=== PATIENT | male | born 1980 | race Hispanic/Latino ===

== ENCOUNTER 2021-06-23 23:42 | Emergency (ER) | payer BC, OTHER ==
[2021-06-24] MEDS ORDERED: CEFAZOLIN SODIUM 1 GM/VIAL ONE (04:26)
[2021-06-24] MEDS ORDERED: HYDROCODONE/APAP 5/325 MG TAB ONE (04:26)
[2021-06-24] MEDS ORDERED: TETANUS & DIPHTHERIA TOX,ADULT 0.5 ML VIAL ONE (04:26)
--- NOTE | 2021-06-24 04:53 | ER ---
Nurse's Notes [facility] Name: Serjio Srivastava Age: 40 yrs Sex: Male : 1980 Arrival Date: 06/23/2021 Time: 23:47 Bed 5 Private MD: Diagnosis: Contusion, Right Hand;Abrasion, Right Hand Presentation: 06/24 00:18 Chief complaint: Patient states: Was hitting punching bag at arcade and missed the bag, lp1 hit a metal machine nearby; Pain and swelling to right hand; + ETOH. Coronavirus screen: Client denies travel out of the [place] in the last 14 days. At this time, the client does not indicate any symptoms associated with coronavirus-19. Ebola Screen: No symptoms or risks identified at this time. Risk Assessment: Do you want to hurt yourself or someone else? Patient reports no desire to harm self or others. Onset of symptoms was June 23, 2021 at 23:00. 00:18 Method Of Arrival: Ambulatory lp1 00:18 Acuity: MARIBEL 4 lp1 00:20 Initial Sepsis Screen: Does the patient meet any 2 criteria? No. Patient's initial lp1 sepsis screen is negative. Does the patient have a suspected source of infection? No. Patient's initial sepsis screen is negative. Historical: - Allergies: 00:20 No Known Allergies; lp1 - Home Meds: 00:20 None [Active]; lp1 - PMHx: 00:20 None; lp1 - Immunization history:: Adult Immunizations up to date. - Social history:: Smoking status: Patient reports the use of cigarette tobacco products, smokes one-half pack cigarettes per day. Screenin:22 Abuse screen: Denies threats or abuse. Denies injuries from another. Nutritional aj1 screening: No deficits noted. Tuberculosis screening: No symptoms or risk factors identified. Assessment: 00:24 General: Appears in no apparent distress. Behavior is appropriate for age. Pain: lp1 Complains of pain in right hand Pain currently is 2 out of 10 on a pain scale. Neuro: Level of Consciousness is awake, alert, obeys commands. Cardiovascular: Patient's skin is warm and dry. Respiratory: Respiratory effort is even, unlabored. GI: No signs and/or symptoms were reported involving the gastrointestinal system. : No signs and/or symptoms were reported regarding the genitourinary system. EENT: No signs and/or symptoms were reported regarding the EENT system. Derm: Skin is pink, warm \T\ dry. Musculoskeletal: Swelling present in right index finger, right middle finger and dorsum of right hand. 02:22 General: Appears in no apparent distress. comfortable, Behavior is calm, cooperative, aj1 appropriate for age. Pain: Complains of pain in right hand Pain does not radiate. Pain currently is 2 out of 10 on a pain scale. Quality of pain is described as aching. Neuro: Level of Consciousness is awake, alert, obeys commands, Oriented to place, time, situation. Cardiovascular: Patient's skin is warm and dry. Respiratory: Airway is patent Respiratory effort is even, unlabored, Respiratory pattern is regular, symmetrical. GI: No signs and/or symptoms were reported involving the gastrointestinal system. : EENT: No signs and/or symptoms were reported regarding the EENT system. Derm: No signs and/or symptoms reported regarding the dermatologic system. Skin is pink, warm \T\ dry. normal. Musculoskeletal: Range of motion: limited in MCP of right index finger, DIP of right middle finger, MCP of right middle finger, MCP of right ring finger and MCP of right little finger Swelling present in right hand. 03:30 Reassessment: Patient appears in no apparent distress at this time. No changes from aj1 previously documented assessment. Patient and/or family updated on plan of care and expected duration. Pain level reassessed. Patient is alert, oriented x 3, equal unlabored respirations, skin warm/dry/pink. 04:12 Reassessment: Patient appears in no apparent distress at this time. No changes from aj1 previously documented assessment. Patient and/or family updated on plan of care and expected duration. Pain level reassessed. Patient is alert, oriented x 3, equal unlabored respirations, skin warm/dry/pink. Patient refuses tetanus and Ancef injections because he does not want to take a shot. 05:06 Reassessment: Patient is alert, oriented x 3, equal unlabored respirations, skin bb warm/dry/pink. bandage to right hand in place, pt verbalized understanding of and agrees to plan of care discharge instructions given pt ambulated with steady gait to exit accompanied by spouse. Vital Signs: 00:20 BP 124 / 81; Pulse 92; Resp 18; Temp 98.2(TE); Pulse Ox 99% on R/A; Weight 113.4 kg lp1 (R); Height 5 ft. 7 in. (170.18 cm); Pain 2/10; 00:20 Body Mass Index 39.16 (113.40 kg, 170.18 cm) lp1 ED Course: 06/23 23:47 Patient arrived in ED. do 06/24 00:20 Triage completed. lp1 00:20 Arm band placed on left wrist. lp1 00:58 Hand Right 3 View XRAY In Process Unspecified. EDMS 02:19 Ernesto Jarvis MD is Attending Physician. [facility] 02:19 Melissa Garibay, RN is Primary Nurse. aj1 02:22 Patient has correct armband on for positive identification. Bed in low position. Call aj1 light in reach. 02:22 No provider procedures requiring assistance completed. aj1 05:08 Patient did not have IV access during this emergency room visit. bb Administered Medications: 04:12 Drug: [place] (HYDROcodone-acetaminophen) 5 mg-325 mg 1 tabs Route: PO; aj1 05:08 Follow up: Response: No adverse reaction; Pain is decreased; RASS: Alert and Calm (0) bb 04:16 Drug: Tetanus-Diphtheria Toxoid Adult 0.5 ml {Immigration Paralegal: [place]. Exp: aj1 02/02/2023. Lot #: [id number]. } Route: IM; Site: right gluteus; 05:07 Follow up: Response: No adverse reaction bb 04:16 Drug: Ancef (cefazolin) 1 grams Route: IM; Site: left gluteus; aj1 05:08 Follow up: Response: No adverse reaction bb Outcome: 04:53 Discharge ordered by . [facility] 05:08 Discharged to home ambulatory, with family. bb 05:08 Condition: stable 05:08 Discharge instructions given to patient, Instructed on discharge instructions, follow up and referral plans. medication usage, Demonstrated understanding of instructions, follow-up care, medications, Prescriptions given X 1. 05:08 Patient left the ED. bb Signatures: Dispatcher [employer] [facility] Melissa Garibay RN RN 1 Marianne Gentile RN RN bb Leslie Noel RN DYAN lp1 Xuan Bo Maurice, MD MD mh7 Corrections: (The following items were deleted from the chart) 00:23 00:18 Chief complaint: Patient states: Was hitting punching bag at arcade and missed lp1 the bag, hit a metal machine nearby; Pain and swelling to right hand lp1
--- NOTE | 2021-06-24 04:54 | EDPHYS ---
Physician Documentation [facility] Name: Serjio Srivastava Age: 40 yrs Sex: Male : 1980 Arrival Date: 06/23/2021 Time: 23:47 Bed 5 Private MD: ED Physician Ernesto Jarvis HPI: 06/24 02:50 This 40 yrs old Male presents to ER via Ambulatory with complaints of Hand mh7 Injury. 02:50 The patient or guardian reports injury. The complaints affect the right hand diffusely. mh7 Context: The problem was sustained at a sports field or court, resulted from using own fist to strike, a solid object. Onset: The symptoms/episode began/occurred just prior to arrival, today. Modifying factors: The symptoms are alleviated by nothing, the symptoms are aggravated by nothing. Associated signs and symptoms: Pertinent negatives: cyanosis distally, decreased sensation distally, fever, nausea, numbness distally, tingling distally, vomiting. Severity of symptoms: At their worst the symptoms were moderate, earlier today, in the emergency department the symptoms have improved, moderately. Patient admits to drinking alcohol. He states he was punching a punching bag when he missed once and hit a piece of metal. Patient's confirms this information.. Historical: - Allergies: 00:20 No Known Allergies; lp1 - Home Meds: 00:20 None [Active]; lp1 - PMHx: 00:20 None; lp1 - Immunization history:: Adult Immunizations up to date. - Social history:: Smoking status: Patient reports the use of cigarette tobacco products, smokes one-half pack cigarettes per day. ROS: 02:50 Constitutional: Negative for fever, chills, and weight loss, Eyes: Negative for injury, mh7 pain, redness, and discharge, ENT: Negative for injury, pain, and discharge, Neck: Negative for injury, pain, and swelling, Cardiovascular: Negative for chest pain, palpitations, and edema, Respiratory: Negative for shortness of breath, cough, wheezing, and pleuritic chest pain, Abdomen/GI: Negative for abdominal pain, nausea, vomiting, diarrhea, and constipation, Back: Negative for injury and pain, : Negative for injury, bleeding, discharge, and swelling, Neuro: Negative for headache, weakness, numbness, tingling, and seizure, Psych: Negative for depression, anxiety, suicide ideation, homicidal ideation, and hallucinations, Allergy/Immunology: Negative for hives, rash, and allergies, Endocrine: Negative for neck swelling, polydipsia, polyuria, polyphagia, and marked weight changes. Exam: 02:50 Constitutional: This is a well developed, well nourished patient who is awake, alert, mh7 and in no acute distress. Head/Face: Normocephalic, atraumatic. Eyes: Pupils equal round and reactive to light, extra-ocular motions intact. Lids and lashes normal. Conjunctiva and sclera are non-icteric and not injected. Cornea within normal limits. Periorbital areas with no swelling, redness, or edema. Neck: Trachea midline, no thyromegaly or masses palpated, and no cervical lymphadenopathy. Supple, full range of motion without nuchal rigidity, or vertebral point tenderness. No Meningismus. Chest/axilla: Normal chest wall appearance and motion. Nontender with no deformity. No lesions are appreciated. Cardiovascular: Regular rate and rhythm with a normal S1 and S2. No gallops, murmurs, or rubs. Normal PMI, no JVD. No pulse deficits. Respiratory: Lungs have equal breath sounds bilaterally, clear to auscultation and percussion. No rales, rhonchi or wheezes noted. No increased work of breathing, no retractions or nasal flaring. Abdomen/GI: Soft, non-tender, with normal bowel sounds. No distension or tympany. No guarding or rebound. No evidence of tenderness throughout. Back: No spinal tenderness. No costovertebral tenderness. Full range of motion. 02:50 Neuro: Awake and alert, GCS 15, oriented to person, place, time, and situation. Cranial nerves II-XII grossly intact. Motor strength 5/5 in all extremities. Sensory grossly intact. Cerebellar exam normal. Normal gait. Psych: Awake, alert, with orientation to person, place and time. Behavior, mood, and affect are within normal limits. 02:50 Musculoskeletal/extremity: Extremities: noted in the dorsum of right hand: pain, swelling, tenderness, ROM: intact in all extremities, Circulation is intact in all extremities. Sensation intact. Compartment Syndrome exam of affected extremity: is normal. no numbness, no tingling, no sensation deficit, no palor, no weak pulses, Joints: All joints appear normal with full range of motion. 02:50 Skin: injury, abrasion(s), very small abrasion noted, of the right index finger. Vital Signs: 00:20 BP 124 / 81; Pulse 92; Resp 18; Temp 98.2(TE); Pulse Ox 99% on R/A; Weight 113.4 kg lp1 (R); Height 5 ft. 7 in. (170.18 cm); Pain 2/10; 00:20 Body Mass Index 39.16 (113.40 kg, 170.18 cm) lp1 MDM: 04:51 Differential diagnosis: dislocation, closed fracture, contusion, abrasion. Data [facility] reviewed: vital signs, nurses notes, radiologic studies, plain films. Counseling: I had a detailed discussion with the patient and/or guardian regarding: the historical points, exam findings, and any diagnostic results supporting the discharge/admit diagnosis, radiology results, the need for outpatient follow up, to return to the emergency department if symptoms worsen or persist or if there are any questions or concerns that arise at home. Response to treatment: the patient's symptoms have markedly improved after treatment. 04:53 Patient medically screened. [facility] 06/24 00:23 Order name: Hand Right 3 View XRAY [facility] 06/24 04:54 Order name: Jhoan Wrap; Complete Time: 04:55 [facility] Administered Medications: 04:12 Drug: [place] (HYDROcodone-acetaminophen) 5 mg-325 mg 1 tabs Route: PO; aj1 05:08 Follow up: Response: No adverse reaction; Pain is decreased; RASS: Alert and Calm (0) bb 04:16 Drug: Tetanus-Diphtheria Toxoid Adult 0.5 ml {Print Line Operator: [employer]. Exp: aj1 02/02/2023. Lot #: [id number]. } Route: IM; Site: right gluteus; 05:07 Follow up: Response: No adverse reaction bb 04:16 Drug: Ancef (cefazolin) 1 grams Route: IM; Site: left gluteus; aj1 05:08 Follow up: Response: No adverse reaction bb Disposition Summary: 06/24/21 04:53 Discharge Ordered Location: Home [facility] Problem: new [facility] Symptoms: have improved [facility] Condition: Stable [facility] Diagnosis - Contusion, Right Hand mh7 - Abrasion, Right Hand [facility] Followup: [facility] - With: Private Physician - When: 1 - 2 days - Reason: Worsening of condition, Recheck today's complaints, Continuance of care, Re-evaluation by your physician Discharge Instructions: - Discharge Summary Sheet [facility] - Hand Contusion, [id number] [facility] - Abrasion, [id number] [facility] Forms: - Medication Reconciliation Form [facility] - Thank You Letter [facility] - Antibiotic Education [facility] - Prescription Opioid Use [facility] Prescriptions: - Ibuprofen 800 mg Oral Tablet - take 1 tablet by ORAL route every 8 hours As needed take with food; 15 tablet; [facility] Refills: 0, Product Selection Permitted Signatures: Dispatcher [employer] Melissa Vargas RN RN aj1 Leslie Noel RN RN lp1 Ernesto Jarvis MD MD [facility] Marianne Gentile RN
[2021-06-24 05:42] VITALS: BP 124/81; TEMP 98.2; O2SAT 99
--- NOTE | 2021-06-24 17:47 | RAD REPORT ---
EXAM DESCRIPTION: RAD - Hand Right 3 View - 06/24/2021 12:58 am COMPARISON: None. CLINICAL HISTORY: Pain;Swelling FINDINGS: 3 views of the right hand demonstrate no acute fracture or dislocation. Soft tissues are unremarkable. IMPRESSION: No acute findings of the right hand. Electronically signed by: Dwayne Bryant MD 06/24/2021 3:20 AM CDT Due to temporary technical issues with the PACS/Fluency reporting system, reports are being signed by the in house radiologists without review as a courtesy to insure prompt reporting. The interpreting radiologist is fully responsible for the content of the report.
== END 2021-06-24 05:08 | disposition home or self-care (01) ==
LOC: ER 23:42
DX: S60.511A Abrasion of right hand, initial encounter (principal); W22.8XXA Striking against or struck by other objects, initial encounter; Y93.89 Activity, other specified; F17.210 Nicotine dependence, cigarettes, uncomplicated; Z23 Encounter for immunization
CPT/HCPCS: 73130; 90471; 90714; 96372; 99283; J0690

== ENCOUNTER 2023-08-02 01:31 | Emergency (ER) | payer SELFPAY ==
--- OUTSIDE RECORDS SUMMARY | 2023-08-02 01:42 | XMS REPORT | Continuity of Care Document ---
:1980 Author Organization [facility] t Address [address] [place] [address] Care Team Providers Name Role Phone Clover Ortiz Attending Clinician Unavailable Payers Payer Name Policy Type Policy Number Effective Date Expiration Date Jose GOODSON 53 [id number] 2019 [facility] - 00:00:00 [facility] Problems Condition Condition Condition Status Onset Resolution Last Treating Co mments Source Name Details Category Date Date Treatment Clinician Date [id number] Alcoholism Problem Active Comm on [facility] [id number] Body mass Problem Active Com mon index [facility] [BMI] - [facility] 40.0-44.9, [facility] [id number] Current Problem Active Common moderate Spirit episode of - [facility] major depressive [facility] disorder [facility] prior episode [id number] Alcoholic Problem Active Com mon cirrhosis [facility] of liver - [facility] without [facility] [id number] Morbid Problem Active Commo n 9104 (severe) Spirit obesity - [facility] due to [facility] Allergies, Adverse Reactions, Alerts This patient has no known allergies or adverse reactions. Social History Social Habit Start Date Stop Date Quantity Comments Source History of Tobacco Current Smoker Co mmon [facility] Use [facility] [place] Sex Assigned At Com mon [facility] - [facility] Smoking Status Start Date Stop Date Source Current Smoker 2022-02-28 00:00:00 [facility] Medications Ordered Filled Start Stop Current Ordering Indication Dosage Frequency Signature Comments Components Source Medication Medication Date Date Medication? Clinician (SIG) Name Name No Known No Known No Common Medications Medications [facility] Vital Signs Vital Name Observation Time Observation Value Comments Source height 2022-02-28 09:00:00 [facility] weight 2022-02-28 09:00:00 267 [lb_av] [facility] temperature 2022-02-28 09:00:00 97.4 [degF] [facility] bmi 2022-02-28 09:00:00 41.81 kg/m2 [facility] oximetry 2022-02-28 09:00:00 100 % [facility] respiratory rate 2022-02-28 09:00:00 16 /min Comm on [facility] blood pressure 2022-02-28 09:00:00 127 mm[Hg] Common [facility] - systolic [facility] blood pressure 2022-02-28 09:00:00 77 mm[Hg] [facility] diastolic [facility] Procedures This patient has no known procedures. Encounters Start End Encounter Admission Attending Care Care Encounter Source Date/Time Date/Time Type Type Clinicians Facility Department ID 2022-03-26 Outpatient LUNA Ortiz [facility] [id number] Common 09:03:04 Clover [facility] 2022-02-28 Outpatient LUNA Ortiz [facility] [id number] Common 08:48:19 Clover [facility] 2022-02-28 2022-02-28 OFFICE BESS [facility] [id number] Co mmon 00:00:00 00:00:00 VISIT NEW Spir it PT LEVEL 4 [facility] Results This patient has no known results.
[2023-08-02 02:35] LABS: Absolute Lymphocytes (CBC) 1.1 K/uL (0.7-4.9); Hematocrit 43.4 % (39.6-49.0); Lymphocytes % 14.2 % (15.3-44.8); MCV 92.7 fL (80-100); MPV 7.4 fL (7.6-11.3); Platelets 154 thou/uL (152-406); RBC Red Blood Cell Count 4.69 M/uL (4.33-5.43)
[2023-08-02] MEDS ORDERED: TDAP (DIPHTH,PERTUSS(ACELL),TET VAC) 0.5 ML VIAL IMVAC ONE (02:36)
[2023-08-02] MEDS ORDERED: NA CHLORIDE 0.9% 1,000 ML ONE (02:36)
[2023-08-02 02:52] LABS: Albumin 3.9 g/dL (3.4-5.0); Potassium 3.4 mEq/L (3.5-5.1); Protein, Total 7.5 g/dL (6.4-8.2)
[2023-08-02] MEDS ORDERED: POTASSIUM 25 MEQ EFFERV TAB ONE (05:12)
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
[2023-08-02] MEDS ORDERED: CEFTRIAXONE 1000 MG/VIAL ONE (06:42)
[2023-08-02] MEDS ORDERED: NA CHLORIDE 0.9% 100 ML ONE (06:42)
[2023-08-02] MEDS ORDERED: LEVETIRACETAM 500 MG/5 ML VIAL IV ONE (06:42)
[2023-08-02] MEDS ORDERED: WATER FOR INJ,STERILE 10 ML ONE (06:42)
[2023-08-02] MEDS ORDERED: ONDANSETRON 4 MG/2 ML VIAL ONE ×2 (07:12→08:33)
[2023-08-02 09:24] VITALS: TEMP 98
[2023-08-02 09:25] VITALS: O2SAT 95
[2023-08-02 09:26] VITALS: BP 119/74
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
== END 2023-08-02 08:35 | disposition short-term general hospital (02) ==
LOC: ER 01:31
DX: S06.5XAA Traumatic subdural hemorrhage with loss of consciousness status unknown, initial encounter (principal); S02.40BA Malar fracture, left side, initial encounter for closed fracture; S02.40DA Maxillary fracture, left side, initial encounter for closed fracture; S02.40FA Zygomatic fracture, left side, initial encounter for closed fracture; F10.929 Alcohol use, unspecified with intoxication, unspecified; Y09 Assault by unspecified means
CPT/HCPCS: 36415; 70450; 70486; 71260; 72125; 74177; 76377; 80053; 82077; 85025; 96361; 96365; 96368; 96372; 96375; 99285; J0696; J1953; J2405; J7030; Q9967

== ENCOUNTER 2024-06-22 18:50 | Emergency (ER) | payer SELFPAY ==
[2024-06-22] MEDS ORDERED: NA CHLORIDE 0.9% 1,000 ML ONE (19:14)
[2024-06-22 19:23] LABS: Absolute Eosinophils 0.3 K/uL (0-0.5); Absolute Lymphocytes (CBC) 0.4 K/uL (0.7-4.9); Absolute Monocytes 0.6 K/uL (0.1-1.3); Absolute Neutrophil 4.2 K/uL (1.8-8.0); Basophils % 0.7 % (0-1.3); Eosinophils % 4.9 % (0-4.4); Hematocrit 44.7 % (39.6-49.0); Hemoglobin 15.1 g/dL (13.6-17.9); Lymphocytes % 7.9 % (15.3-44.8); MCH 31.2 pg (27.0-35.0); MCHC 33.8 g/dL (32.0-36.0); MCV 92.3 fL (80-100); MPV 7.5 fL (7.6-11.3); Monocytes % 10.3 % (3.3-12.3); Neutrophils % 76.2 % (41.7-73.7); Nucleated Red Blood Cells % 0.1 % (0-0); Platelets 175 thou/uL (152-406); RBC Red Blood Cell Count 4.84 M/uL (4.33-5.43); Red Cell Distribution Width 13.9 % (12.1-15.2)
[2024-06-22 19:39] LABS: Albumin 3.6 g/dL (3.4-5.0); Albumin/Globulin Ratio 0.9 (1.1-1.8); Anion Gap 11.1 mEq/L (5.0-15.0); Bilirubin Total 1.1 mg/dL (0.2-1.0); Potassium 4.1 mEq/L (3.5-5.1); Protein, Total 7.6 g/dL (6.4-8.2)
[2024-06-22 19:43] LABS: PT Prothrombin Time 13.2 SECONDS (9.4-12.5); PTT, Activated Partial Thromb 34.1 SECONDS (24.3-36.9); Protime INR 1.18
[2024-06-22] MEDS ORDERED: HYDROMORPHONE HCL 1 MG/ML INJ ONE (20:00)
[2024-06-22] MEDS ORDERED: CLINDAMYCIN 900MG/D5W 900 MG/50 ML IVPB IV ONE (20:00)
--- NOTE | 2024-06-22 20:39 | EDPHYS ---
Physician Documentation [facility] Name: Serjio Srivastava Age: 43 yrs Sex: Male : 1980 Arrival Date: 06/22/2024 Time: 18:50 Bed 9 Private MD: Joseph Garcia HPI: 06/22 19:15 This 43 yrs old Male presents to ER via Ambulatory with complaints of Abscess. cp 19:15 The patient presents with an abscess of the abdomen, The patient presents with cp cellulitis of the abdomen. Description: draining, warm, pain. Onset: The symptoms/episode began/occurred last week. Associated signs and symptoms: Pertinent negatives: fever. Modifying factors: the symptoms are aggravated by movement. 19:15 Patient reports he was seen at urgent care and prescribed Bactrim for abscess. cp concerned that abscess is now draining. Historical: - Allergies: 19:03 No Known Allergies; me1 - PMHx: 19:03 primary biliary cirrhosis; me1 - PSHx: 19:03 Appendectomy; me1 - Immunization history:: Adult Immunizations up to date. - Infectious Disease History:: Denies. - Social history:: Smoking status: Patient reports the use of cigarette tobacco products, smokes one pack cigarettes per day. ROS: 19:20 Constitutional: Negative for body aches, chills, fever, poor PO intake, cp 19:20 Cardiovascular: Negative for chest pain, cp 19:20 Respiratory: Negative for cough, shortness of breath, wheezing, 19:20 Abdomen/GI: Positive for abdominal pain, 19:20 Skin: Positive for abscess, cellulitis, of the abdomen, 19:20 Neuro: Negative for altered mental status, headache, weakness, 19:20 All other systems are negative, Exam: 19:25 Constitutional: The patient appears in no acute distress, alert, awake, non-toxic, well cp developed, well nourished, uncomfortable, 19:25 Head/Face: Normocephalic, atraumatic. cp 19:25 Eyes: Periorbital structures: appear normal, Conjunctiva: normal, no exudate, no injection, Sclera: no appreciated abnormality, Lids and lashes: appear normal, bilaterally, 19:25 ENT: External ear(s): are unremarkable, Nose: is normal, Mouth: Lips: moist, Oral mucosa: pink and intact, moist, Posterior pharynx: Airway: no evidence of obstruction, patent, 19:25 Chest/axilla: Inspection: normal, 19:25 Cardiovascular: Rate: normal, Rhythm: regular, 19:25 Respiratory: the patient does not display signs of respiratory distress, Respirations: normal, no use of accessory muscles, no retractions, labored breathing, is not present, Breath sounds: are clear throughout, no decreased breath sounds, no stridor, no wheezing, 19:25 Abdomen/GI: Inspection: ruptured abscess left lower abdomen with minimal drainage expressed, mild surrounding erythema, pain to palpation, Bowel sounds: active, all quadrants, Palpation: soft, in all quadrants, moderate abdominal tenderness, in the left lower quadrant, rebound tenderness, is not appreciated, voluntary guarding, is elicited in the left lower quadrant, 19:25 Neuro: Orientation: to person, place \T\ time. Mentation: is normal, Motor: moves all fours, strength is normal, Sensation: is normal, 19:33 ECG was reviewed by the Attending Physician. cp Vital Signs: 19:01 BP 126 / 76; Pulse 87; Resp 17; Temp 98.4; Pulse Ox 98% on R/A; Weight 117.93 kg; me1 Height 5 ft. 7 in. ; Pain 6/10; 21:01 BP 122 / 74; Pulse 70; Resp 18; Pulse Ox 100% on R/A; mb9 19:01 Body Mass Index 40.72 (117.93 kg, 170.18 cm) me1 19:01 Pain Scale: Adult me1 MDM: 18:58 Patient medically screened. cp 20:38 Data reviewed: vital signs, nurses notes, lab test result(s), EKG, and as a result, I cp will discharge patient. 20:38 Differential diagnosis: sepsis, abscess, cellulitis. I considered the following cp discharge prescriptions or medication management in the emergency department Medications were administered in the Emergency Department. See MAR. Counseling: I had a detailed discussion with the patient and/or guardian regarding the historical points, exam findings, and any diagnostic results supporting the discharge/admit diagnosis, lab results, to return to the emergency department if symptoms worsen or persist or if there are any questions or concerns that arise at home. Response to treatment: the patient's symptoms have markedly improved after treatment, and as a result, I will discharge patient. 06/22 19:03 Order name: CBC with Diff; Complete Time: 19:32 cp 06/22 19:51 Interpretation: Normal except: MPV 7.5; MALINI% 76.2; LYM% 7.9; EOSINOPHIL % 4.9; LYMA 0.4.cp 06/22 19:03 Order name: CMP; Complete Time: 19:50 cp 06/22 19:50 Interpretation: Normal except: GLUC 127; BUN 3; AST 210; ALT 105; ALK 130; BILIT 1.1; cp GLOB 4.0; A/G 0.9. 06/22 19:03 Order name: Lactate w/ 2H reflex if indic.; Complete Time: 19:50 cp 06/22 19:03 Order name: Protime (+inr); Complete Time: 19:50 cp 06/22 19:03 Order name: Ptt, Activated; Complete Time: 19:50 cp 06/22 19:03 Order name: Accucheck; Complete Time: 19:18 cp 06/22 19:03 Order name: Cardiac monitoring; Complete Time: 19:18 cp 06/22 19:03 Order name: EKG - Nurse/Tech; Complete Time: 19:18 cp 06/22 19:03 Order name: IV Saline Lock - Large Bore; Complete Time: 19:18 cp 06/22 19:03 Order name: Labs collected and sent; Complete Time: 19:18 cp 06/22 19:03 Order name: O2 Per Protocol; Complete Time: 19:18 cp 06/22 19:03 Order name: O2 Sat Monitoring; Complete Time: 19:18 cp 06/22 19:03 Order name: Vital Signs; Complete Time: 19:18 cp 06/22 19:55 Order name: Misc. Order: wound packing; Complete Time: 20:05 cp EC:33 Rate is 81 beats/min. Rhythm is regular. AK interval is normal. QRS interval is normal. cp QT interval is normal. T waves are Inverted in lead aVR. Interpreted by me. Reviewed by me. Administered Medications: 19:20 Drug: NS 0.9% IV 1000 ml IV at 1 bolus Per protocol; 1000 mL bolus Route: IV; Rate: 1 mb9 bolus; Site: right antecubital; 21:01 Follow up: Response: No adverse reaction; IV Status: Completed infusion mb9 20:05 Drug: Clindamycin IVPB 900 mg IVPB once over 30 mins; (mix in 50 mL) Route: IVPB; mb9 Infused Over: 30 mins; Site: right antecubital; 21:01 Follow up: Response: No adverse reaction; IV Status: Completed infusion mb9 20:05 Drug: HYDROmorphone IVP 1 mg IVP once Route: IVP; Site: right antecubital; mb9 21:01 Follow up: Response: No adverse reaction mb9 Disposition Summary: 06/22/24 20:39 Discharge Ordered Notes: Location: Home cp Problem: new cp Symptoms: have improved cp Condition: Stable cp Diagnosis - Cellulitis of abdominal wall cp Followup: cp - With: Julio Cesar Lucas MD - When: 1 - 2 days - Reason: Recheck today's complaints Discharge Instructions: - Discharge Summary Sheet cp - Cellulitis, Adult cp Forms: - Medication Reconciliation Form cp - Antibiotic Education cp - Prescription Opioid Use cp - Patient Portal Instructions cp - Leadership Thank You Letter cp Prescriptions: - Clindamycin HCl 300 mg Oral Capsule - take 1 capsule ORAL route every 6 hours for 10 days; 40 capsule; Refills: 0, cp Product Selection Permitted - Diclofenac Sodium 75 mg Oral tablet, delayed release (enteric coated) - take 1 tablet ORAL route 2 times per day; 20 tablet; Refills: 0, Product cp Selection Permitted Addendum: 06/26/2024 05:10 Co-signature as Attending Physician, Joseph Greenfield MD I agree with the assessment and c le plan of care. Signatures: Dispatcher [employer] Joseph Montenegro MD MD cha Page, Corey, PA PA cp Irlanda Hoffmann RN RN mb9 Izabela Vallecillo RN RN me1 Corrections: (The following items were deleted from the chart) 06/22 19:03 19:03 CBC+H.LAB.BRZ ordered. EDMS EDMS 19:03 19:03 COMPREHENSIVE METABOLIC PANEL+C.LAB.BRZ ordered. EDMS EDMS 19:03 19:03 LACTATE+C.LAB.BRZ ordered. EDMS EDMS 19:03 19:03 PROTIME (+INR)+COAG.LAB.BRZ ordered. EDMS EDMS 19:03 19:03 PTT, ACTIVATED+COAG.LAB.BRZ ordered. EDMS EDMS 19: 19:03 PROTIME (+INR)+COAG.LAB.BRZ ordered. EDMS EDMS 19: 19:03 PTT, ACTIVATED+COAG.LAB.BRZ ordered. EDMS EDMS
--- NOTE | 2024-06-22 20:39 | ER ---
Nurse's Notes [facility] Name: Serjio Srivastava Age: 43 yrs Sex: Male : 1980 Arrival Date: 06/22/2024 Time: 18:50 Bed 9 Private MD: Diagnosis: Cellulitis of abdominal wall Presentation: 06/22 19:01 Chief complaint: Patient states: Abscess to LLQ skin fold on abdomen, went to urgent in1 care and has been taking bactrim but abscess seems to be worse and is draining purulent drainage. Coronavirus screen: Vaccine status: Patient reports being unvaccinated. Ebola Screen: No symptoms or risks identified at this time. Initial Sepsis Screen: Does the patient meet any 2 criteria? No. Patient's initial sepsis screen is negative. Risk Assessment: Do you want to hurt yourself or someone else? Patient reports no desire to harm self or others. Onset of symptoms is unknown. 19:01 Method Of Arrival: Ambulatory [facility] 19:01 Acuity: MARIBEL 3 [facility] 19:17 Initial Sepsis Screen: Does the patient have a suspected source of infection? No. mb9 Patient's initial sepsis screen is negative. Historical: - Allergies: 19:03 No Known Allergies; me1 - PMHx: 19:03 primary biliary cirrhosis; me1 - PSHx: 19:03 Appendectomy; me1 - Immunization history:: Adult Immunizations up to date. - Infectious Disease History:: Denies. - Social history:: Smoking status: Patient reports the use of cigarette tobacco products, smokes one pack cigarettes per day. Screenin:17 [facility] ED Fall Risk Assessment (Adult) History of falling in the last 3 months, mb9 including since admission No falls in past 3 months (0 pts) Confusion or Disorientation No (0 pts) Intoxicated or Sedated No (0 pts) Impaired Gait No (0 pts) Mobility Assist Device Used No (0 pt) Altered Elimination No (0 pt) Score/Fall Risk Level 0 - 2 = Low Risk Oriented to surroundings, Maintained a safe environment, Educated pt \T\ family on fall prevention, incl call for assistance when getting out of bed. Abuse screen: Denies threats or abuse. Nutritional screening: No deficits noted. Tuberculosis screening: No symptoms or risk factors identified. Assessment: 19:16 General: Appears in no apparent distress. Behavior is calm, cooperative. Pain: mb9 Complains of pain in abdomen. Neuro: Hernández Agitation-Sedation Scale (RASS): 0 - Alert and Calm Level of Consciousness is awake, alert, obeys commands, Oriented to person, place, time, situation, Appropriate for age. Cardiovascular: Patient's skin is warm and dry. Respiratory: Airway is patent Respiratory effort is even, unlabored, Respiratory pattern is regular, symmetrical. GI: Abdomen is round non-distended, Bowel sounds present X 4 quads. Abd is soft and non tender X 4 quads. : No signs and/or symptoms were reported regarding the genitourinary system. EENT: No signs and/or symptoms were reported regarding the EENT system. Derm: Abscess located on abdomen is quarter sized, has purulent drainage, is hot to touch, is red. Musculoskeletal: Range of motion: intact in all extremities. Vital Signs: 19:01 BP 126 / 76; Pulse 87; Resp 17; Temp 98.4; Pulse Ox 98% on R/A; Weight 117.93 kg; me1 Height 5 ft. 7 in. ; Pain 6/10; 21:01 BP 122 / 74; Pulse 70; Resp 18; Pulse Ox 100% on R/A; mb9 19:01 Body Mass Index 40.72 (117.93 kg, 170.18 cm) me1 19:01 Pain Scale: Adult in1 ED Course: 18:53 Patient arrived in ED. mg5 18:58 Joseph Workman PA is PHCP. cp 18:58 Joseph Greenfield MD is Attending Physician. cp 19:03 Triage completed. me1 19:03 Arm band placed on Patient placed in an exam room. me1 19:08 Irlanda Hoffmann, DYAN is Primary Nurse. mb9 19:16 Initial lab(s) drawn, by in, sent to lab. Inserted saline lock: 20 gauge in right mb9 antecubital area, using aseptic technique. Blood collected. Flushed with 10 mL NS. 19:17 Bed in low position. Call light in reach. Side rails up X 1. Provided Education on: mb9 press call light if needing anything. Client placed on continuous cardiac and pulse oximetry monitoring. NIBP monitoring applied. 19:17 No provider procedures requiring assistance completed. mb9 20:38 Julio Cesar Lucas MD is Referral Physician. cp 21:01 IV discontinued, intact, bleeding controlled, No redness/swelling at site. Pressure mb9 dressing applied. Administered Medications: 19:20 Drug: NS 0.9% IV 1000 ml IV at 1 bolus Per protocol; 1000 mL bolus Route: IV; Rate: 1 mb9 bolus; Site: right antecubital; 21:01 Follow up: Response: No adverse reaction; IV Status: Completed infusion mb9 20:05 Drug: Clindamycin IVPB 900 mg IVPB once over 30 mins; (mix in 50 mL) Route: IVPB; mb9 Infused Over: 30 mins; Site: right antecubital; 21:01 Follow up: Response: No adverse reaction; IV Status: Completed infusion mb9 20:05 Drug: HYDROmorphone IVP 1 mg IVP once Route: IVP; Site: right antecubital; mb9 21:01 Follow up: Response: No adverse reaction mb9 Medication: 19:17 VIS not applicable for this client. mb9 Outcome: 20:39 Discharge ordered by . cp 21:01 Discharged to home ambulatory, with family, mb9 21:01 Condition: stable 21:01 Discharge instructions given to patient, family, Instructed on discharge instructions, follow up and referral plans. Demonstrated understanding of instructions, follow-up care, medications, Prescriptions given X 2, 21:02 Patient left the ED. mb9 Signatures: Joseph Workman PA PA cp Wilkerson, Mary Beth, RN RN mb9 Izabela Vallecillo RN RN me1 Mojgan Potter mg5
--- NOTE | 2024-06-24 13:21 | EKG ---
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
[2024-06-24 17:55] VITALS: BP 122/74; TEMP 98.4; O2SAT 100
== END 2024-06-22 21:02 | disposition home or self-care (01) ==
LOC: ER 18:50
DX: L03.311 Cellulitis of abdominal wall (principal); F17.210 Nicotine dependence, cigarettes, uncomplicated
CPT/HCPCS: 36415; 80053; 83605; 85025; 85610; 85730; 93005; 96361; 96365; 96375; 99284; J1170; J7030

== ENCOUNTER 2024-06-26 19:20 | Inpatient (IN) | payer SELFPAY ==
--- NOTE | 2024-06-26 21:46 | RAD REPORT ---
EXAM DESCRIPTION: Rebekah Single View06/26/2024 9:22 pm CLINICAL HISTORY: FEVER COMPARISON: No comparisons TECHNIQUE: Portable AP view of the chest. FINDINGS: The lungs are clear. No pneumothorax or effusion. The cardiomediastinal contours are unre markable. IMPRESSION: No acute cardiopulmonary process.
[2024-06-26 22:02] LABS: Specific Gravity 1.028 (1.005-1.030); Sqamous Epithelial <5 /HPF (None Seen); Urine Bacteria None Seen /HPF (<20); Urine Bilirubin NEGATIVE (Negative); Urine Blood Negative (Negative); Urine Clarity Extremely Turbid (Clear); Urine Color Yellow (Yellow); Urine Culture Reflex Order NOT NEEDED; Urine Glucose NEGATIVE (Negative); Urine Ketones NEGATIVE (Negative); Urine Microscopic Reflex YN ORDER UMIC; Urine Mucus Slight /HPF (None Seen); Urine Nitrite NEGATIVE (Negative); Urine Protein 1+ (Negative); Urine RBC <5 /HPF (None Seen); Urine Urobilinogen Normal (Normal); Urine WBC <5 /HPF (<5); Urine pH 5.5 (5.0-7.0)
[2024-06-26 22:06] LABS: Absolute Eosinophils 0.5 K/uL (0-0.5); Absolute Lymphocytes (CBC) 0.3 K/uL (0.7-4.9); Absolute Monocytes 0.3 K/uL (0.1-1.3); Absolute Neutrophil 6.3 K/uL (1.8-8.0); Basophils % 0.3 % (0-1.3); Eosinophils % 6.5 % (0-4.4); Hematocrit 46.8 % (39.6-49.0); Hemoglobin 15.9 g/dL (13.6-17.9); Lymphocytes % 4.7 % (15.3-44.8); MCH 31.1 pg (27.0-35.0); MCV 91.3 fL (80-100); MPV 8.6 fL (7.6-11.3); Monocytes % 4.5 % (3.3-12.3); Nucleated Red Blood Cells % 0.1 % (0-0); Platelets 110 thou/uL (152-406); RBC Red Blood Cell Count 5.12 M/uL (4.33-5.43); Red Cell Distribution Width 13.9 % (12.1-15.2)
[2024-06-26 22:11] LABS: SARS-CoV-2 Antigen CONTROL BLUE LINE VIS/BG OK; SARS-CoV-2 Antigen Rapid Res Negative (Negative)
[2024-06-26 22:15] LABS: Albumin 3.7 g/dL (3.4-5.0); Albumin/Globulin Ratio 0.9 (1.1-1.8); Anion Gap 11.9 mEq/L (5.0-15.0); Bilirubin Total 0.8 mg/dL (0.2-1.0); Globulin 4.3 g/dL (2.3-3.5); Potassium 3.9 mEq/L (3.5-5.1)
[2024-06-26 22:16] LABS: PT Prothrombin Time 13.7 SECONDS (9.4-12.5); PTT, Activated Partial Thromb 36.3 SECONDS (24.3-36.9); Protime INR 1.23
[2024-06-26] MEDS ORDERED: NA CHLORIDE 0.9% 1,000 ML ONE (22:31)
--- NOTE | 2024-06-27 00:54 | ER ---
Nurse's Notes [facility] Name: Serjio Srivastava Age: 43 yrs Sex: Male : 1980 Arrival Date: 06/26/2024 Time: 19:20 Bed DX1 Private MD: Diagnosis: Cellulitis of abdominal wall;Failure of outpatient treatment of cellulitis Presentation: 06/26 20:07 Chief complaint: Patient states: Stomach abscess and fever. Coronavirus screen: Client vc1 denies travel out of the [place] in the last 14 days. At this time, the client does not indicate any symptoms associated with coronavirus-19. Ebola Screen: Patient negative for fever greater than or equal to 101.5 degrees Fahrenheit, and additional compatible Ebola Virus Disease symptoms Patient denies exposure to infectious person. Patient denies travel to an Ebola-affected area in the 21 days before illness onset. No symptoms or risks identified at this time. Initial Sepsis Screen: Does the patient meet any 2 criteria? No. Patient's initial sepsis screen is negative. Does the patient have a suspected source of infection? No. Patient's initial sepsis screen is negative. Risk Assessment: Do you want to hurt yourself or someone else? Patient reports no desire to harm self or others. Onset of symptoms was June 26, 2024. 20:07 Method Of Arrival: Ambulatory vc1 20:07 Acuity: MARIBEL 3 vc1 Historical: - Allergies: 20:09 No Known Allergies; vc1 - Home Meds: 20:09 None [Active]; vc1 - PMHx: 20:09 PRIMARY BILIARY CIRRHOSIS; vc1 - PSHx: 20:09 Appendectomy; vc1 - Immunization history:: Client reports having NOT received the Covid vaccine. - Infectious Disease History:: Denies. - Social history:: Smoking status: Patient denies any tobacco usage or history of. - Family history:: not pertinent. - Hospitalizations: : No recent hospitalization is reported. Screenin/28 01:49 [facility] [place] ED Fall Risk Assessment (Adult) History of falling in the last 3 months, vc1 including since admission No falls in past 3 months (0 pts) Confusion or Disorientation No (0 pts) Intoxicated or Sedated No (0 pts) Impaired Gait No (0 pts) Mobility Assist Device Used No (0 pt) Altered Elimination No (0 pt) Score/Fall Risk Level 0 - 2 = Low Risk Oriented to surroundings, Maintained a safe environment, Educated pt \T\ family on fall prevention, incl call for assistance when getting out of bed. Abuse screen: Denies threats or abuse. Nutritional screening: No deficits noted. Tuberculosis screening: No symptoms or risk factors identified. Assessment: 02:34 General: Appears in no apparent distress. uncomfortable, obese, well groomed, Behavior vc1 is calm, cooperative, agitated. Pain: Complains of pain in left lower quadrant Pain does not radiate. Neuro: Level of Consciousness is awake, alert, obeys commands, Oriented to person, place, time, situation, Appropriate for age. Cardiovascular: Heart tones S1 S2 present Capillary refill < 3 seconds Patient's skin is warm and dry. Respiratory: Airway is patent Respiratory effort is even, unlabored, Respiratory pattern is regular, symmetrical, Breath sounds are clear bilaterally. GI: No deficits noted. No signs and/or symptoms were reported involving the gastrointestinal system. : No deficits noted. No signs and/or symptoms were reported regarding the genitourinary system. EENT: No deficits noted. No signs and/or symptoms were reported regarding the EENT system. Derm: Skin is intact, is healthy with good turgor, Skin is dry, Skin is normal, Skin temperature is warm. Musculoskeletal: No deficits noted. No signs and/or symptoms reported regarding the musculoskeletal system. Vital Signs: 06/26 20:07 BP 95 / 48; Pulse 82; Resp 20; Temp 98.7(O); Pulse Ox 100% ; Weight 117.93 kg; Height 5 vc1 ft. 7 in. ; Pain 0/10; 22:41 BP 112 / 57; Pulse 100; Resp 18 S; Temp 100.7; Pulse Ox 97% on R/A; sa1 06/27 01:49 BP 128 / 56; Pulse 96; Resp 18; Temp 100.7; Pulse Ox 96% ; vc1 06/26 20:07 Body Mass Index 40.72 (117.93 kg, 170.18 cm) 1 06/26 20:07 Pain Scale: Adult vc1 ED Course: 06/26 19:23 Patient arrived in ED. ra3 19:40 Kelvin Stubbs MD is Attending Physician. rn 20:07 Arm band placed on right wrist. vc1 20:09 Triage completed. vc1 21:24 Chest Single View XRAY In Process Unspecified. EDMS 21:46 Inserted saline lock: 20 gauge in right antecubital area, using aseptic technique. af3 Blood collected. Flushed with 10 mL NS. 21:48 Flu Sent. af3 21:48 SARS RAPID Sent. af3 21:48 Blood Culture Adult (2) Sent. af3 21:48 CBC with Diff Sent. af3 21:48 CMP Sent. af3 21:48 Lactate w/ 2H reflex if indic. Sent. af3 21:48 Protime (+inr) Sent. af3 21:48 Ptt, Activated Sent. af3 21:48 Urinalysis w/ reflexes Sent. af3 22:45 Abdomen In Process Unspecified. EDPA 06/27 00:53 Braeden Mireles MD is Hospitalizing Provider. rn 02:33 No provider procedures requiring assistance completed. Patient admitted, IV remains in vc1 place. 02:33 Patient has correct armband on for positive identification. Call light in reach. sat in 1 diagnostic chair. Provided Education on: safety. Administered Medications: 06/26 22:35 Drug: NS 0.9% IV 1000 ml IV at 1000 ml once Route: IV; Rate: 1000 ml; Site: right ha1 antecubital; 06/27 01:43 Drug: vancoMYCIN IVPB 1 grams IVPB once over 2 hrs Route: IVPB; Infused Over: 2 hrs; 1 Site: right antecubital; Medication: 02:33 VIS not applicable for this client. 1 Outcome: 00:53 Decision to Hospitalize by Provider. rn 02:37 Admitted to Med/surg accompanied by tech, via wheelchair, room 213, [facility] 02:37 Condition: good 02:37 Instructed on the need for admit, 02:37 Patient left the ED. [facility] Signatures: Dispatcher [employer] EDPA Kelvin Stubbs MD MD rn Calcote, Vanessa RN RN [facility] Parris Vaughan RN RN ha1 Meme Mclain 3 Sultan lindsay Campa Ashley 3
--- NOTE | 2024-06-27 00:54 | EDPHYS ---
Physician Documentation [facility] Name: Serjio Srivastava Age: 43 yrs Sex: Male : 1980 Arrival Date: 06/26/2024 Time: 19:20 Bed DX1 Private MD: ED Physician Kelvin Stubbs HPI: 06/26 20:23 This 43 yrs old Male presents to ER via Ambulatory with complaints of Fever, rn Abscess - stomach. 20:23 The patient reports fever, that was measured at 102 degrees Fahrenheit. Onset: The rn symptoms/episode began/occurred 4 day(s) ago. Modifying factors: there are no obvious modifying factors. Severity of symptoms: At their worst the symptoms were mild in the emergency department the symptoms are unchanged. The patient has not experienced similar symptoms in the past. Patient reports has been seen for the last 2 weeks for stomach wall infection. He is on his second round of antibiotics. States initially had an abscess that popped on its own. States skin actually looks better on abdomen but for some reason he has had a fever above in the last few days. Tmax 102. Denies cough or shortness of breath. Denies any abdominal pain. No urinary symptoms.. Historical: - Allergies: 20:09 No Known Allergies; vc1 - Home Meds: 20:09 None [Active]; vc1 - PMHx: 20:09 PRIMARY BILIARY CIRRHOSIS; vc1 - PSHx: 20:09 Appendectomy; vc1 - Immunization history:: Client reports having NOT received the Covid vaccine. - Infectious Disease History:: Denies. - Social history:: Smoking status: Patient denies any tobacco usage or history of. - Family history:: not pertinent. - Hospitalizations: : No recent hospitalization is reported. ROS: 20:24 Constitutional: Positive for fever and chills Eyes: Negative for injury, pain, redness, rn and discharge, Neck: Negative for injury, pain, and swelling, Cardiovascular: Negative for chest pain, palpitations, and edema, Respiratory: Negative for shortness of breath, cough, wheezing, and pleuritic chest pain, Abdomen/GI: Negative for abdominal pain or vomiting. Positive for abdominal wall tenderness MS/Extremity: Negative for injury and deformity, Neuro: Positive for headache and generalized weakness Exam: 20:24 Constitutional: This is a well developed, well nourished patient who is awake, alert, rn and in no acute distress. Head/Face: Normocephalic, atraumatic. Cardiovascular: Regular rate and rhythm. No pulse deficits. Respiratory: No increased work of breathing, no retractions or nasal flaring. Abdomen/GI: Soft, non-tender, lower abdominal wall without induration or fluctuance. Does have signs of cellulitis to the lower abdominal wall. Does show mottled appearance to torso. No cyanosis. MS/ Extremity: Pulses equal, no cyanosis. Neuro: Awake and alert, GCS 15 22:21 ECG was reviewed by the Attending Physician. rn Vital Signs: 20:07 BP 95 / 48; Pulse 82; Resp 20; Temp 98.7(O); Pulse Ox 100% ; Weight 117.93 kg; Height 5 vc1 ft. 7 in. ; Pain 0/10; 22:41 BP 112 / 57; Pulse 100; Resp 18 S; Temp 100.7; Pulse Ox 97% on R/A; sa1 06/27 01:49 BP 128 / 56; Pulse 96; Resp 18; Temp 100.7; Pulse Ox 96% ; vc1 06/26 20:07 Body Mass Index 40.72 (117.93 kg, 170.18 cm) 1 06/26 20:07 Pain Scale: Adult vc1 MDM: 06/26 19:40 Patient medically screened. rn 06/27 00:52 Differential diagnosis: viral Infection, bacterial infection. Data reviewed: vital rn signs, nurses notes, lab test result(s), radiologic studies, CT scan, and as a result, I will admit patient. Consideration of Admission/Observation Patient was admitted/placed on observation. Escalation of care including admission/observation considered. Counseling: I had a detailed discussion with the patient and/or guardian regarding the historical points, exam findings, and any diagnostic results supporting the discharge/admit diagnosis, lab results, radiology results, the need for further work-up and treatment in the hospital. ED course: Patient feels better but I am concerned with 2 weeks of antibiotics and now spiking a fever, soft blood pressure in the 90s systolic, mottled torso. CT shows cellulitis without intra-abdominal extension or fluid collection. Will admit to hospitalist service for IV antibiotics. 06/26 20:09 Order name: Blood Culture Adult (2) rn 06/26 20:09 Order name: CBC with Diff; Complete Time: 22:18 rn 06/26 20:09 Order name: CMP; Complete Time: 22:18 rn 06/26 20:09 Order name: Lactate w/ 2H reflex if indic.; Complete Time: 22:18 06/26 20:09 Order name: Protime (+inr); Complete Time: 22:18 06/26 20:09 Order name: Ptt, Activated; Complete Time: 22:18 06/26 20:09 Order name: Urinalysis w/ reflexes; Complete Time: 22:18 rn 06/26 20:09 Order name: SARS RAPID; Complete Time: 22:18 06/26 20:09 Order name: Flu; Complete Time: 22:59 rn 06/27 01:10 Order name: Urinalysis w/ reflexes EDMN 06/27 01:10 Order name: CBC with Automated Diff EDMN 06/27 01:10 Order name: CBC with Automated Diff EDMN 06/27 01:10 Order name: Comprehensive Metabolic Panel [facility] 06/27 01:10 Order name: Comprehensive Metabolic Panel [facility] 06/26 20:09 Order name: Chest Single View XRAY; Complete Time: 22:18 06/26 22:37 Order name: Abdomen EDMN 06/26 20:09 Order name: EKG; Complete Time: 20:10 06/26 20:09 Order name: Accucheck; Complete Time: 22:31 06/26 20:09 Order name: EKG - Nurse/Tech; Complete Time: 21:48 06/26 20:09 Order name: IV Saline Lock - Large Bore; Complete Time: 21:48 06/26 20:09 Order name: Labs collected and sent; Complete Time: 21:48 06/26 20:09 Order name: O2 Per Protocol; Complete Time: 22:34 06/26 20:09 Order name: O2 Sat Monitoring; Complete Time: 22:35 06/26 20:09 Order name: Vital Signs; Complete Time: 22:31 rn EC/27 22:21 Rate is 93 beats/min. Rhythm is regular. QRS Rogers is Normal. [place] interval is normal. QRS rn interval is normal. QT interval is normal. No Q waves. T waves are Normal. No ST changes noted. Clinical impression: Normal ECG. Interpreted by me. Reviewed by me. Administered Medications: 22:35 Drug: NS 0.9% IV 1000 ml IV at 1000 ml once Route: IV; Rate: 1000 ml; Site: right ha1 antecubital; 06/27 01:43 Drug: vancoMYCIN IVPB 1 grams IVPB once over 2 hrs Route: IVPB; Infused Over: 2 hrs; vc1 Site: right antecubital; Disposition Summary: 06/27/24 00:53 Hospitalization Ordered Notes: Hospitalization Status: Inpatient Admission rn Provider: Braeden Mireles rn Location: Telemetry/MedSurg (Inpatient) rn Condition: Stable rn Problem: new rn Symptoms: have worsened rn Bed/Room Type: Standard rn Room Assignment: 213(06/27/24 01:31) [facility] Diagnosis - Cellulitis of abdominal wall rn - Failure of outpatient treatment of cellulitis rn Forms: - Medication Reconciliation Form rn - SBAR form rn - Leadership Thank You Letter rn Signatures: Dispatcher [facility] Kelvin Stubbs MD MD rn Calcote, Vanessa, RN RN 1 Parris Vaughan RN RN 1 Myrtle Wilkins km Corrections: (The following items were deleted from the chart) 06/26 22:37 20:10 Abdomen Pelvis W Con+CT.RAD.BRZ ordered. [facility] 06/27 01:31 00:53 rn kmf
[2024-06-27] MEDS ORDERED: ONDANSETRON 4 MG/2 ML VIAL IV PRN (01:05)
--- NOTE | 2024-06-27 01:05 | P.HP ---
Certification for Inpatient Patient admitted to: Inpatient With expected LOS: >2 Midnights Practitioner: I am a practitioner with admitting privileges, knowledge of patient current condition, hospital course, and medical plan of care. Services: Services provided to patient in accordance with Admission requirements found in Title 42 Section 412.3 of the Code of Federal Regulations Patient History Date of Service: 06/27/24 Reason for admission: Failed outpatient treatment History of Present Illness: 43 yrs old Male with past medical history of primary biliary cirrho sis, who came to ER with complaints of Fever and Abscess abdominal wall which has been going on for the last 2 weeks and has been getting better but fever continues to be high. For the last 4 days he was spiking fever up to 102. Denies any dysuria. No chest pain or shortness of breath. No upper respiratory tract symptoms. No sick contacts. Patient states that he was started having abdominal wall infection 2 weeks ago and has been progressively getting worse. He had 2 rounds of p.o. antibiotics. States that the skin looks better but continues to spike fevers. Patient was assessed in the ER and is admitted for further management. Allergies No Known Allergies Allergy (Unverified 06/27/24 01:49) Home medications list reviewed: Yes Home Medications: Acetaminophen [Tylenol Extra Strength] 1,000 mg PO Q6H 06/27/24 Diclofenac Sodium [Voltaren] 75 mg PO BID 06/27/24 Ibuprofen [Motrin] 400 mg PO Q6H PRN 06/27/24 clindamycin HCL [Clindamycin HCl] 300 mg PO Q6H 06/27/24 - Past Medical/Surgical History Past Medical History: Reviewed- Non-Contributory Past Surgical History: Reviewed- Non-Contributory - Social History Smoking Status: Never smoker Alcohol use: Yes Review of Systems 10-point ROS is otherwise unremarkable Physical Examination - Vital Signs Temperature: 98.9 F Blood Pressure: 98/48 Pulse: 82 Respirations: 18 Pulse Ox (%): 94 - Physical Exam General: Alert, In no apparent distress, Oriented x3 HEENT: Atraumatic, Normocephalic Neck: Supple Respiratory: Clear to auscultation bilaterally, Normal air movement Cardiovascular: Regular rate/rhythm, Normal S1 S2 Capillary refill: <2 Seconds Gastrointestinal: Soft and benign, W/out hepatosplenomegaly, Tenderness Musculoskeletal: No clubbing Integumentary: No rashes, Tenderness/swelling, Erythema Neurological: Normal speech, Normal strength at 5/5 x4 extr, Cranial nerves 3-12 intact, Normal reflexes 2+ Lymphatics: No axilla or inguinal lymphadenopathy - Studies Laboratory Data (last 24 hrs) 06/26/24 06/26/24 06/26/24 21:45 21:45 21:45 WBC 7.50 Hgb 15.9 Hct 46.8 Plt Count 110 L PT 13.7 H INR 1.23 APTT 36.3 Sodium 132 L Potassium 3.9 BUN 14 Creatinine 1.71 H Glucose 104 Total Bilirubin 0.8 AST 163 H ALT 121 H Alkaline Phosphatase 133 H Microbiology Data (last 24 hrs): 06/26/24 21:42 Nasopharnyx Influenza Type A Antigen Screen - Final 06/26/24 21:42 Nasopharnyx Influenza Type B Antigen Screen - Final Assessment and Plan - Problems (Diagnosis) (1) Abdominal wall cellulitis Current Visit: Yes Status: Acute Plan: Abdominal wall cellulitis Failed outpatient management Had 2 rounds of antibiotics p.o. Started on IV antibiotics Will get surgical opinion Patient continued to spike fever CT abdomen pending Hyponatremia Acute kidney injury Started on IV fluids Monitor renal parameters Electrolytes monitor and replace accordingly Elevated LFTs Patient had primary biliary cirrhosis Monitor LFTs GI/DVT prophylaxis Advanced directive full code Discharge Plan: Home Plan to discharge in: 48 Hours - Advance Directives Does patient have a Living Will: No Does patient have a Durable POA for Healthcare: No - Code Status/Comfort Care Code Status: Full Code Time Spent Managing Pts Care (In Minutes): 48
[2024-06-27] MEDS ORDERED: NA CHLORIDE 0.9% 250 ML ONE (01:37)
[2024-06-27] MEDS ORDERED: VANCOMYCIN 1 GM/VIAL ONE (01:37)
[2024-06-27] MEDS: NA CHLORIDE 0.9% 1,000 ML IV SCH (03:00)
[2024-06-27] MEDS: ACETAMINOPHEN 325 MG TABLET PO PRN (04:15)
[2024-06-27] MEDS: METRONIDAZOLE 500mg IVPB 500 MG/100 ML BAG IV SCH (06:40)
[2024-06-27] MEDS: CEFTRIAXONE 1,000 MG in NA CHLORIDE 0.9% 50 ML IVPB SCH (06:41)
[2024-06-27] MEDS: ENOXAPARIN 40 MG/0.4 ML SQ SCH (08:31)
[2024-06-27] MEDS: MUPIROCIN 2% OINT 22GM TUBE TOP SCH (12:00)
--- NOTE | 2024-06-27 12:24 | CON ---
Date of Consultation: 06/27/2024 Reason For Service: Abdominal wall cellulitis. History Of Present Illness: This is the case of a 43-year-old patient who has been battling with abd ominal wall cellulitis for about two weeks. He stated that primarily he uses a belt to help him move around and do activities. He also carry a gun. All that has some weight and the belt rub against h is abdomen, creating two blisters, one of them resolved by itself, the second one is still going ther e. He has been in two weeks on p.o. antibiotics, but he noticed the erythema was still present. The re was no drainage coming from that area. The ulcer is completely flat and there is no purulent disc harge coming from that area. This ulcer came after the blister broke. He has been started on antibi otics since he did not improve. He was admitted to the hospital and a surgical consultation was becka baltazar. Allergies: NONE. Past Medical History: Biliary cirrhosis. Medications: Voltaren. Clindamycin. Social History: He does not smoke. He does not drink alcohol. Past Surgical History: None. Review of Systems: Abdominal wall discomfort with increased temperature and an ulcer. See HPI. Ten points, otherwise, unremarkable. Physical Examination: Vital Signs: Reviewed. General: Patient is awake and alert. No distress. HEENT: Pupils are equal and reactive. Anicteric. Neck: Supple. Chest: Clear. Abdomen: Soft and depressible. No guarding. No rebound. No peritoneal signs. Over the left lower quadrant, patient has an area of cellulitis about 15 x 20 cm. There is an ulceration of about 3 x 3 cm superficial on the area of maximal exposure. There is no fluctuance. No crepitus present. This just goes to the dermis. There is no crepitus. Extremities: Good capillary refill. Laboratory Data: Blood work shows WBC count of 7.5, hemoglobin of 15.9, potassium 3.9, glucose 104. CAT scan of the abdomen and pelvis interpreted by Dr. Richmond shows the findings above, but no eviden ce of fluid collection. Assessment: 43-year-old patient with the cellulitis of the abdominal wall, failure of outpatient aysha atment. Right now, there is no fluctuance or fluid collection present. He is going to be started on antibiotics. We are going to let this area mature in the next few days. If he develops anything th at need to be drained, we already explained to him the options of that if he developed those findings . DAMON Voice ID: [id number] Report ID: [id number]
[2024-06-27 13:48] LABS: Specific Gravity < 1.005 (1.005-1.030); Sqamous Epithelial None Seen /HPF (None Seen); Urine Bacteria <20 /HPF (<20); Urine Bilirubin NEGATIVE (Negative); Urine Blood Negative (Negative); Urine Clarity Clear (Clear); Urine Color Colorless (Yellow); Urine Culture Reflex Order NOT NEEDED; Urine Glucose NEGATIVE (Negative); Urine Ketones NEGATIVE (Negative); Urine Microscopic Reflex YN ORDER UMIC; Urine Mucus Slight /HPF (None Seen); Urine Nitrite NEGATIVE (Negative); Urine Protein NEGATIVE (Negative); Urine RBC None Seen /HPF (None Seen); Urine Urobilinogen Normal (Normal); Urine WBC <5 /HPF (<5); Urine pH 6.5 (5.0-7.0)
[2024-06-27] MEDS: HYDROCODONE/APAP 5/325 MG TAB PO PRN (14:05)
--- NOTE | 2024-06-27 16:55 | P.PN ---
Date of Service: 06/27/24 Mr. Srivastava presents with abdominal cellulitis with x2 failed attempts of OP antibiotics. He denies hx of DM, HTN, HLD, will add A1c, lipid panel to am labs, Seen by Dr Gomes for abdominal Cellulitis, no plan for surgical intervention, IV ABX, pending wound, blood cultures, He had elevated liver enzymes, will add hepatitis panel, and liver us to eval elevated liver enzymes. He does not have health insurance, will consult to provide list of clinics for assistance medications, health care. His was at bedside, both verbalized understand. Instructed to BP, BG log take to FU appt.
--- NOTE | 2024-06-27 21:35 | RAD REPORT ---
EXAM DESCRIPTION: US - Liver Only - 06/27/2024 6:06 pm CLINICAL HISTORY: elevated liver enzymes COMPARISON: Liver Only dated 09/23/2016 TECHNIQUE: Sonographic grayscale and color flow images of the upper abdomen were obtained. FINDINGS: Liver demonstrates homogeneous echotexture and diffusely increased parenchymal echogenicit y. Subcapsular geographic 1.3 x 1.2 cm left lobe lesion is noted anteriorly, not well characterized. No other suspicious focal lesions. Hepatopetal flow appreciated in the main portal vein. The liver demonstrates no findings of intrahepatic biliary dilatation. Spleen is enlarged, measuring 14.6 centimeter in long axis. The common bile duct is normal measuring 4 mm. IMPRESSION: Diffuse hepatic steatosis. Geographic left lobe subcapsular 1.3 cm lesion may represent focal fatty sparing. Splenomegaly, measuring 14.6 cm in long axis.
--- NOTE | 2024-06-27 23:49 | P.PN ---
Subjective Date of Service: 06/27/24 Patient still with complaints of fevers. Temp of a 100.9. Patient's states that abdominal wall cellulitis is improved. Erythema is significantly better. However, patient is still having fevers and having shakes and chills. Consider for bacteremia. Will evaluate ultrasound of the liver. Patient may need more dedicated imaging study as patient had a CT scan done but it was done without contrast. Previous concern would be for a liver abscess. Will get imaging in the morning. Review of Systems 10-point ROS is otherwise unremarkable Physical Examination - Vital Signs Temperature: 100.9 F Blood Pressure: 130/56 Pulse: 92 Respirations: 20 Pulse Ox (%): 97 - Physical Exam General: Alert, In no apparent distress, Oriented x3 HEENT: Atraumatic, PERRLA, EOMI Neck: Supple, JVD not distended Respiratory: Clear to auscultation bilaterally, Normal air movement Cardiovascular: Regular rate/rhythm, Normal S1 S2 Gastrointestinal: Normal bowel sounds, No tenderness Musculoskeletal: No tenderness Integumentary: Tenderness/swelling, Erythema Neurological: Sensation intact, Cranial nerves 3-12 intact - Studies Microbiology Data (last 24 hrs): 06/26/24 21:42 Nasopharnyx Influenza Type A Antigen Screen - Final 06/26/24 21:42 Nasopharnyx Influenza Type B Antigen Screen - Final Medications List Reviewed: Yes Assessment & Plan - Problems (Diagnosis) (1) Persistent fever Current Visit: Yes Status: Acute (2) Hepatic lesion Current Visit: Yes Status: Acute (3) Liver enzyme elevation Current Visit: Yes Status: Acute (4) Abdominal wall cellulitis Current Visit: Yes Status: Acute - Plan 1. Continue with IV antibiotic 2. Continue with local wound care 3. Surgical consultation appreciated 4. Gentle IV hydration 5. Monitor CBC/procalcitonin/blood cx 6. echo pending 7. Antipyretic 8. GI and DVT prophylaxis Discharge Plan: Home Plan to discharge in: Greater than 2 days - Advance Directives Does patient have a Living Will: No Does patient have a Durable POA for Healthcare: No - Code Status/Comfort Care Code Status: Full Code Critical Care: No Time Spent Managing PTS Care (In Minutes): 45
[2024-06-28] MEDS: ACETAMINOPHEN 500 MG TAB PO SCH
[2024-06-28 06:39] LABS: Absolute Eosinophils 0.4 K/uL (0-0.5); Absolute Lymphocytes (CBC) 0.6 K/uL (0.7-4.9); Absolute Monocytes 0.2 K/uL (0.1-1.3); Absolute Neutrophil 3.4 K/uL (1.8-8.0); Basophils % 0.3 % (0-1.3); Eosinophils % 8.9 % (0-4.4); Hematocrit 40.9 % (39.6-49.0); Lymphocytes % 13.9 % (15.3-44.8); MCH 31.3 pg (27.0-35.0); MCHC 34.1 g/dL (32.0-36.0); MCV 91.6 fL (80-100); MPV 10.3 fL (7.6-11.3); Monocytes % 3.7 % (3.3-12.3); Neutrophils % 73.2 % (41.7-73.7); Nucleated Red Blood Cells % 0.2 % (0-0); Platelets 51 thou/uL (152-406); RBC Red Blood Cell Count 4.47 M/uL (4.33-5.43); Red Cell Distribution Width 14.1 % (12.1-15.2)
[2024-06-28 07:03] LABS: Albumin 2.8 g/dL (3.4-5.0); Albumin/Globulin Ratio 0.8 (1.1-1.8); Anion Gap 9.8 mEq/L (5.0-15.0); Bilirubin Total 0.7 mg/dL (0.2-1.0); C-Reactive Protein 62.1 mg/L (<3.00); Globulin 3.5 g/dL (2.3-3.5); Potassium 3.8 mEq/L (3.5-5.1); Protein, Total 6.3 g/dL (6.4-8.2)
[2024-06-28 08:09] LABS: Blood Morphology Comment NOT SEEN (NOT SEEN); Platelet Estimate DECR; White Blood Cell Scan OK (OK)
[2024-06-28 08:32] LABS: HBsAG Nonreactive Report Report; Hepatitis B Core IgM Nonreactive (Nonreactive); Hepatitis B surface AG Interp. Nonreactive (Nonreactive); Hepatitis C Virus Ab Nonreactive (Nonreactive)
--- NOTE | 2024-06-28 08:45 | RAD REPORT ---
EXAM DESCRIPTION: CT - Chest Abdomen Pelvis W Cont - 06/28/2024 8:16 am CLINICAL HISTORY: hepatic abscess COMPARISON: Abdomen Pelvis Wo Contrast dated 06/26/2024 TECHNIQUE: Thin axial CT images of the chest, abdomen, and pelvis, performed following intravenous a dministration of 100mL Isovue-300. Multiplanar reformats were generated and reviewed. All CT scans are performed using dose optimization technique as appropriate and may include automated exposure control or mA/KV adjustment according to patient size. FINDINGS: The lungs are clear.No pleural or pericardial effusion.No intrathoracic adenopathy. The liver shows diffuse parenchymal hypoattenuation suggesting steatosis. Anterior subcapsular left l iver lobe geographic region of relative hyperdensity is stable, favored to represent focal fatty spar ing. Spleen, pancreas, adrenal glands and kidneys are within normal limits. No bowel obstruction, free air, free fluid or abscess. Nonspecific fluid opacification of the ascendi ng colon and rectosigmoid, may relate to diarrheal state. No pathologic lymphadenopathy in the abdom en or pelvis. Stable small region of skin thickening and underlying mild fat stranding along the left lower anterio r abdominal wall. No evidence of fluid collections. No worrisome osseous finding. IMPRESSION: Stable small region of left lower anterior abdominal wall skin thickening is stable. No evidence of progression or fluid collections. Diffuse hepatic steatosis. Small subcapsular left lobe area of relative hyperdensity suggesting focal fatty sparing. Nonspecific fluid opacification of the ascending colon and rectosigmoid, may relate to diarrheal stat e.
--- NOTE | 2024-06-28 12:31 | EKG ---
Test Date: 2024-06-26 Test Time: 21:32:32 Photonics Engineering Technologist: ABRAHAM MEASUREMENT RESULTS: Intervals: Rate: 93 IA: 194 QRSD: 100 QT: 352 QTc: 437 Wayan: P: 1 IA: 194 QRS: 101 T: -3 INTERPRETIVE STATEMENTS: Normal sinus rhythm Normal ECG Compared to ECG 06/22/2024 19:25:21 Sinus arrhythmia no longer present Myocardial infarct finding no longer present Electronically Signed On 06-28-24 12:30:11 CDT by Reg Villatoro
--- NOTE | 2024-06-28 13:57 | RAD REPORT ---
EXAM DESCRIPTION: CT - Abdomen Pelvis Wo Contrast - 06/27/2024 6:53 am CLINICAL HISTORY: The patient is 26 years old and is Female; lower abdomen pain TECHNIQUE: Axial computed tomography images of the abdomen and pelvis with intravenous contrast. S agittal and coronal reformatted images were created and reviewed. This CT exam was performed using one or more of the following dose reduction techniques: automated exposure control, adjustment of t he mA and/or kV according to patient size, and/or use of iterative reconstruction technique. COMPARISON: CT abdomen pelvis September 23, 2023 FINDINGS: LUNG BASES: Minimal dependent densities in the lung bases are present. No consolidatio n. HEART: A small pericardial effusion is present. This is new from prior exam. ABDOMEN: LIVER: Mild passive congestion of the right hepatic lobe is suggested. The liver is enlarged. GALLBLADDER AND BILE DUCTS: No calcified stones. No ductal dilation. PANCREAS: No ductal dilation. No mass. SPLEEN: Unremarkable. ADRENALS: Unremarkable. No mass. KIDNEYS AND URETERS: Unremarkable. The kidneys enhance symmetrically. No obstructing renal or ure teral calculus is seen. No hydronephrosis or hydroureter. No perinephric fluid or stranding. STOMACH AND BOWEL: The stomach is decompressed. The small bowel is fluid filled and relatively no rmal in caliber. Stool and air noted throughout the colon. There is no mucosal thickening or evidence of obstruction. PELVIS: APPENDIX: The appendix is normal in caliber without surrounding inflammation. BLADDER: The bladder is not well-distended. REPRODUCTIVE: Redemonstration of the complex bilateral adnexal cystic lesions with associated sep tations. The wall are thickened and irregular. These have increased in size from prior exam. The righ t adnexal cystic mass measures 12.6 x 7.1 cm compared to prior measurement of 10.1 x 5.7 cm. The left adnexal cystic mass measures approximately 15.4 x 9.6 cm. A small satellite 4.1 x 2.4 cm cystic lesi on within the superior aspect of the pelvis is present. ABDOMEN and PELVIS: INTRAPERITONEAL SPACE: Unremarkable. No free air. No significant fluid collection. BONES/JOINTS: No acute fracture. SOFT TISSUES: The soft tissues are normal. VASCULATURE: Unremarkable. No abdominal aortic aneurysm. LYMPH NODES: Unremarkable. No enlarged lymph nodes. IMPRESSION: 1. Redemonstration of the complex bilateral adnexal cystic masses. These masses have i ncreased in size with associated increasing thickened marte and irregularity. While findings could be secondary to infected tubo-ovarian abscesses, cystic neoplasm is high within the differential. Gynec ology consultation is recommended and consider MRI with IV contrast if clinically warranted. 2. Small pericardial effusion. Electronically signed by: Teodora Garrison MD 06/26/2024 11:38 PM CDT RP Due to temporary technical issues with the PACS/Fluency reporting system, reports are being signed by the in house radiologist without review as a courtesy to ensure prompt reporting. The interpreting r adiologist is fully responsible for the content of the report.
--- NOTE | 2024-06-28 14:12 | ECHO ---
HEIGHT: 5 ft 7 in WEIGHT: 248 lb 8 oz DATE OF STUDY: 06/28/[address]: Mike Bird MD 2-DIMENSIONAL: YES M.MODE: YES DOPPLER: YES COLOR FLOW: YES TDS: NO PORTABLE: YES DEFINITY: NO BUBBLE STUDY: NO DIAGNOSIS: INFECTIVE ENDOCARDITIS CARDIAC HISTORY: CATHERIZATION: NO SURGERY: NO PROSTHETIC VALVE: NO PACEMAKER: NO MEASUREMENTS (cm) DIASTOLIC (NORMALS) SYSTOLIC (NORMALS) IVSd 1.3 (0.6-1.2) LA Diam 2.9 (1.9-4.0) LVEF >60% LVIDd 4.0 (3.5-5.7) LVIDs 2.8 (2.0-3.5) %FS 30% LVPWd 1.3 (0.6-1.2) Ao Diam 2.8 (2.0-3.7) 2 DIMENSIONAL ASSESSMENT: RIGHT ATRIUM: NORMAL LEFT ATRIUM: NORMAL RIGHT VENTRICLE: NORMAL LEFT VENTRICLE: NORMAL TRICUSPID VALVE: MILD TRICUSPID REGURGITATION MITRAL VALVE: MILD SULMA REGURGITATION PULMONIC VALVE: NORMAL AORTIC VALVE: NORMAL PERICARDIAL EFFUSION: NONE AORTIC ROOT: NORMAL LEFT VENTRICULAR WALL MOTION: NORMAL. DOPPLER/COLOR FLOW: SEE BELOW. COMMENTS: 1. NORMAL LEFT VENTRICULAR EJECTION FRACTION GREATER THAN 60% WITH NORMAL WALL MOTION. 2. MILD MITRAL REGURGITATION. 3. MILD TRICUSPID REGURGITATION 4. NO CLEAR VEGETATION IS SEEN ON THIS EXAM TECHNOLOGIST: ALMA OSORIO
[2024-06-28 14:57] LABS: Absolute Eosinophils 0.2 K/uL (0-0.5); Absolute Monocytes 0.2 K/uL (0.1-1.3); Basophils % 0.4 % (0-1.3); Eosinophils % 5.2 % (0-4.4); Hematocrit 43.7 % (39.6-49.0); Hemoglobin 14.2 g/dL (13.6-17.9); MCHC 32.5 g/dL (32.0-36.0); MCV 92.3 fL (80-100); MPV 9.9 fL (7.6-11.3); Monocytes % 4.9 % (3.3-12.3); Neutrophils % 67.5 % (41.7-73.7); Nucleated Red Blood Cells % 0.1 % (0-0); Platelets 31 thou/uL (152-406); RBC Red Blood Cell Count 4.73 M/uL (4.33-5.43); Red Cell Distribution Width 14.4 % (12.1-15.2)
[2024-06-28 16:40] LABS: Band Neutrophils 1 % (0-1); Blood Morphology Comment NOT SEEN (NOT SEEN); Differential Total Cells Count 100; Eosinophils 5 % (0-3); Lymphocytes 19 % (15-42); Monocytes 2 % (0-10); Platelet Estimate DECR; Segmented Neutrophils 73 % (40-80)
--- NOTE | 2024-06-28 19:03 | RAD REPORT ---
EXAM DESCRIPTION: USExtrem Venous W Compress Bil06/28/2024 6:44 pm CLINICAL HISTORY: Leg pain thrombocytopenia COMPARISON: none FINDINGS: The common femoral, superficial femoral, greater saphenous, popliteal and posterior tibial veins bilaterally are compressible and demonstrate augmentation. Doppler demonstrates good flow. Grayscale, color and spectral analysis performed on all vessels IMPRESSION: No evidence of deep venous thrombosis involving either lower extremity.
--- NOTE | 2024-06-28 19:04 | RAD REPORT ---
EXAM DESCRIPTION: US - UPPER EXTREMITY VENOUS BILAT - 06/28/2024 6:44 pm CLINICAL HISTORY: Arm pain. Thrombocytopenia COMPARISON: none FINDINGS: The jugular, subclavian, axillary, brachial, basilic, radial and ulnar veins bilaterally a re compressible. Doppler demonstrates good flow Grayscale, color and spectral analysis performed on all vessels IMPRESSION: No evidence of venous thrombus involving either upper extremity
--- NOTE | 2024-06-29 02:10 | P.PN ---
Date of Service: 06/28/24 Subjective Patient is feeling better. Patient did have a fever which shakes and chills this morning. Spoke with hematology regarding thrombocytopenia. We have sent off for peripheral blood smear. Possible ITP or heparin-induced thrombocytopenia. Antibody markers pending. Hematology to readdress in the morning pending labs. Physical Examination - Vital Signs Reviewed - Physical Exam General: Alert, In no apparent distress, Oriented x3 Respiratory: Clear to auscultation bilaterally, Normal air movement Cardiovascular: Regular rate/rhythm, Normal S1 S2 Gastrointestinal: Normal bowel sounds, No tenderness Musculoskeletal: No tenderness Integumentary: Tenderness/swelling, erythema below umbilicus Neurological: No focal deficits Assessment & Plan - Problems (Diagnosis) (1) Persistent fever Current Visit: Yes Status: Acute (2) Possible hepatic lesion Current Visit: Yes Status: Acute (3) Liver enzyme elevation Current Visit: Yes Status: Acute (4) Abdominal wall cellulitis Current Visit: Yes Status: Acute (5) Thrombocytopenia Current Visit: Yes Status: Acute - Plan 1. Continue with IV antibiotic; CT Chest/Abd/pelvis with no signs of infection 2. Continue with local wound care 3. Surgical consultation appreciated 4. Gentle IV hydration 5. Monitor CBC/procalcitonin/blood cx 6. Echo negative 7. Antipyretic 8. Inflammatory markers pending; US for DVT 9. Monitor plts; HIT Ab pending; peripheral blood smear; Appreciate hematology input; repeat plt ct 10. GI and DVT prophylaxis Discharge Plan: Home Plan to discharge in: Greater than 2 days - Advance Directives Does patient have a Living Will: No Does patient have a Durable POA for Healthcare: No - Code Status/Comfort Care Code Status: Full Code Critical Care: No Time Spent Managing PTS Care (In Minutes): 45
[2024-06-29] MEDS: METHYLPREDNISOLONE 125 MG INJ IV SCH (06:29)
[2024-06-29 06:31] LABS: Absolute Eosinophils 0.3 K/uL (0-0.5); Absolute Lymphocytes (CBC) 1.3 K/uL (0.7-4.9); Absolute Monocytes 0.3 K/uL (0.1-1.3); Basophils % 0.7 % (0-1.3); Eosinophils % 6.9 % (0-4.4); Hematocrit 41.8 % (39.6-49.0); Hemoglobin 13.7 g/dL (13.6-17.9); MCH 30.3 pg (27.0-35.0); MCHC 32.8 g/dL (32.0-36.0); MCV 92.4 fL (80-100); MPV 10.9 fL (7.6-11.3); Monocytes % 7.5 % (3.3-12.3); Neutrophils % 51.9 % (41.7-73.7); Nucleated Red Blood Cells % 0.1 % (0-0); Platelets 26 thou/uL (152-406); RBC Red Blood Cell Count 4.52 M/uL (4.33-5.43); Red Cell Distribution Width 13.8 % (12.1-15.2)
[2024-06-29 06:48] LABS: Albumin 2.8 g/dL (3.4-5.0); Albumin/Globulin Ratio 0.7 (1.1-1.8); Anion Gap 9.7 mEq/L (5.0-15.0); Bilirubin Total 0.6 mg/dL (0.2-1.0); C-Reactive Protein 38.3 mg/L (<3.00); Globulin 3.8 g/dL (2.3-3.5); Potassium 3.7 mEq/L (3.5-5.1); Protein, Total 6.6 g/dL (6.4-8.2)
[2024-06-29 06:56] LABS: Thyroid Stimulating Hormone 3.2 uIU/mL (0.358-3.740)
[2024-06-29 07:47] LABS: Slides for Pathologist Review DONE
[2024-06-29] MEDS: POTASSIUM CL SA 10 MEQ TAB PO ONE (08:48)
[2024-06-29 09:05] LABS: PT Prothrombin Time 13.5 SECONDS (9.4-12.5); PTT, Activated Partial Thromb 36.5 SECONDS (24.3-36.9); Protime INR 1.21
--- NOTE | 2024-06-29 09:59 | P.PN ---
Subjective Date of Service: 06/29/24 Chief Complaint: Failed outpatient treatment, panniculitis with abscess Subjective: Improving (cellulitis/area of I&D improved, platelet count decreasing q d. Ren autoimmune lab studies this am and started IV steroids. Platelet count 26. will redraw at 1300 and consider infusion if continuing downward. No active bleeding noted.) <Betty Lundberg - Last Filed: 06/29/24 09:59> Date of Service: 06/29/24 <Mell Espinal - Last Filed: 06/29/24 12:02> Review of Systems 10-point ROS is otherwise unremarkable General: As per HPI Integumentary: As per HPI <Betty Lundberg - Last Filed: 06/29/24 09:59> Physical Examination - Vital Signs Temperature: 97.6 F Blood Pressure: 133/72 Pulse: 75 Respirations: 18 Pulse Ox (%): 96 - Physical Exam General: Alert, In no apparent distress, Oriented x3, Cooperative HEENT: Atraumatic, Normocephalic Neck: Supple Respiratory: Normal air movement Cardiovascular: Normal pulses Capillary refill: <2 Seconds Gastrointestinal: Soft and benign Musculoskeletal: No clubbing Integumentary: Other (I&D area without purulence, no bleeding, previous cellulitic area of panus without erythema, warmth) Neurological: Normal speech, Normal tone, Normal affect Lymphatics: No axilla or inguinal lymphadenopathy External genitalia: Deferred Rectal: Deferred - Studies Medications List Reviewed: Yes <Betty Lundberg - Last Filed: 06/29/24 09:59> Assessment And Plan - Plan Assessment & Plan - Problems (Diagnosis) (1) Persistent fever Current Visit: Yes Status: Acute (2) Possible hepatic lesion Current Visit: Yes Status: Acute (3) Liver enzyme elevation Current Visit: Yes Status: Acute (4) Abdominal wall cellulitis Current Visit: Yes Status: Acute (5) Thrombocytopenia Current Visit: Yes Status: Acute - Plan 1. Continue with IV antibiotic; CT Chest/Abd/pelvis with no signs of infection 2. Continue with local wound care 3. Surgical consultation appreciated - s/p I&D 4. Gentle IV hydration 5. Monitor CBC/procalcitonin/blood cx 6. Echo negative 7. Antipyretic (Tmax 06/29 99.9) 8. Inflammatory markers pending; US for DVT (4 ext US negative for DVT) 9. Monitor plts; HIT Ab pending; peripheral blood smear; Appreciate hematology input; repeat plt ct, plt count lower today (26). Started steroids this am. Will recheck plt at 1300. TS O+ 10. GI and DVT prophylaxis Discharge Plan: Home Plan to discharge in: Greater than 2 days <Betty Lundberg - Last Filed: 06/29/24 09:59> - Plan Pt seen and examined. I agree with the note by the CAGE CLERK. Continue rocephin and flagyl for abdominal wall cellulitis. Continue steroid for thrombocytopenia. Platelet count is 26. No active bleeding. Hematology is following. <Mell Espinal - Last Filed: 06/29/24 12:02>
[2024-06-29 14:58] LABS: Absolute Lymphocytes (CBC) 0.7 K/uL (0.7-4.9); Absolute Monocytes 0.1 K/uL (0.1-1.3); Absolute Neutrophil 1.9 K/uL (1.8-8.0); Basophils % 0.3 % (0-1.3); Eosinophils % 0.3 % (0-4.4); Hematocrit 43.4 % (39.6-49.0); Hemoglobin 14.2 g/dL (13.6-17.9); Lymphocytes % 25.4 % (15.3-44.8); MCH 30.3 pg (27.0-35.0); MCHC 32.8 g/dL (32.0-36.0); MCV 92.5 fL (80-100); MPV 10.7 fL (7.6-11.3); Nucleated Red Blood Cells % 0.3 % (0-0); Platelets 30 thou/uL (152-406); RBC Red Blood Cell Count 4.69 M/uL (4.33-5.43); Red Cell Distribution Width 13.8 % (12.1-15.2)
[2024-06-29 17:31] VITALS: BMI 38.8
[2024-06-29 19:10] LABS: Absolute Lymphocytes (CBC) 0.9 K/uL (0.7-4.9); Absolute Monocytes 0.1 K/uL (0.1-1.3); Absolute Neutrophil 1.3 K/uL (1.8-8.0); Basophils % 0.9 % (0-1.3); Eosinophils % 0.1 % (0-4.4); Hematocrit 40.1 % (39.6-49.0); Hemoglobin 13.5 g/dL (13.6-17.9); Lymphocytes % 37.7 % (15.3-44.8); MCH 30.5 pg (27.0-35.0); MCHC 33.5 g/dL (32.0-36.0); MCV 90.9 fL (80-100); Monocytes % 4.7 % (3.3-12.3); Neutrophils % 56.6 % (41.7-73.7); Nucleated Red Blood Cells % 0.2 % (0-0); Platelets 31 thou/uL (152-406); RBC Red Blood Cell Count 4.42 M/uL (4.33-5.43)
[2024-06-30 00:08] LABS: Rheumatoid Factor NEG (NEG)
[2024-06-30] MEDS: METHYLPREDNISOLONE 125 MG INJ IV SCH (05:46)
[2024-06-30 06:07] LABS: Absolute Lymphocytes (CBC) 1.4 K/uL (0.7-4.9); Absolute Monocytes 0.6 K/uL (0.1-1.3); Absolute Neutrophil 2.8 K/uL (1.8-8.0); Basophils % 0.8 % (0-1.3); Eosinophils % 0.6 % (0-4.4); Hematocrit 37.1 % (39.6-49.0); Hemoglobin 12.6 g/dL (13.6-17.9); Lymphocytes % 29.6 % (15.3-44.8); MCH 31.1 pg (27.0-35.0); MCHC 34.1 g/dL (32.0-36.0); MCV 91.4 fL (80-100); Monocytes % 12.1 % (3.3-12.3); Neutrophils % 56.9 % (41.7-73.7); Nucleated Red Blood Cells % 0.2 % (0-0); Platelets 42 thou/uL (152-406); RBC Red Blood Cell Count 4.06 M/uL (4.33-5.43); Red Cell Distribution Width 13.8 % (12.1-15.2)
[2024-06-30 06:27] LABS: Albumin 2.8 g/dL (3.4-5.0); Albumin/Globulin Ratio 0.8 (1.1-1.8); Anion Gap 7.5 mEq/L (5.0-15.0); Bilirubin Total 0.5 mg/dL (0.2-1.0); Globulin 3.5 g/dL (2.3-3.5); Potassium 3.5 mEq/L (3.5-5.1); Protein, Total 6.3 g/dL (6.4-8.2)
[2024-06-30] MEDS: POTASSIUM CL SA 10 MEQ TAB PO ONE (08:17)
--- NOTE | 2024-06-30 10:08 | P.PN ---
Date of Service: 06/30/24 Chief Complaint: Failed outpatient treatment, panniculitis with abscess Subjective: Improving cellulitis/area of I&D improved, platelet count decreasing qd. Ren autoimmune lab studies this am and started IV steroids. Platelet count 26. will redraw at 1300 () and consider infusion if continuing downward. No active bleeding noted. 06/30/[address] 42) Review of Systems 10-point ROS is otherwise unremarkable General: As per HPI Integumentary: As per HPI Physical Examination - Vital Signs reviewed - Physical Exam General: Alert, In no apparent distress, Oriented x3, Cooperative HEENT: Atraumatic, Normocephalic Neck: Supple, numerous skin tags Respiratory: Normal air movement Cardiovascular: Normal pulses Capillary refill: <2 Seconds Gastrointestinal: Soft and benign Musculoskeletal: No clubbing Integumentary: Other (I&D area without purulence, no bleeding, previous cellulitic area of panus without erythema, warmth) Neurological: Normal speech, Normal tone, Normal affect Lymphatics: No axilla or inguinal lymphadenopathy External genitalia: Deferred Rectal: Deferred Assessment & Plan - Problems (Diagnosis) (1) Persistent fever Current Visit: Yes Status: Acute (2) Possible hepatic lesion Current Visit: Yes Status: Acute (3) Liver enzyme elevation Current Visit: Yes Status: Acute (4) Abdominal wall cellulitis Current Visit: Yes Status: Acute (5) Thrombocytopenia Current Visit: Yes Status: Acute - Plan 1. Continue with IV antibiotic; CT Chest/Abd/pelvis with no signs of infection - vastly improved 06/30/24 2. Continue with local wound care 3. Surgical consultation appreciated - s/p I&D 06/26 4. Gentle IV hydration 5. Monitor CBC/procalcitonin/blood cx 6. Echo negative 7. Antipyretic (Tmax 06/29 99.9) 8. Inflammatory markers pending; US for DVT (4 ext US negative for DVT) 9. Monitor plts; HIT Ab pending; peripheral blood smear; Appreciate hematology input; repeat plt ct, plt count lower today (26). Started steroids this am. Will recheck plt at 1300. TS O+, 06/[address] 42[address] Discussed results with pt and his . Steroids are making him agitated/anxious. Requests anxiolytic. 10. GI and DVT prophylaxis Discharge Plan: Home Plan to discharge in: Greater than 2 days <Betty Lundberg - Last Filed: 06/30/24 10:08> Pt seen and examined. I agree with the note by the SPECIAL NEEDS BUS DRIVER. Continue rocephin and flagyl for abdominal wall cellulitis. Continue steroid for thrombocytopenia. Platelet improved from 26 to 42. No active bleeding. Hematology is following. Will give prn ativan for anxiety. <Mell Espinal - Last Filed: 06/30/24 10:32>
[2024-06-30] MEDS ORDERED: LORAZEPAM 0.5 MG TABLET PO PRN (10:59)
[2024-07-01 05:41] LABS: Absolute Lymphocytes (CBC) 1.9 K/uL (0.7-4.9); Absolute Monocytes 0.7 K/uL (0.1-1.3); Absolute Neutrophil 3.2 K/uL (1.8-8.0); Basophils % 0.4 % (0-1.3); Eosinophils % 0.6 % (0-4.4); Hematocrit 38.4 % (39.6-49.0); Hemoglobin 12.9 g/dL (13.6-17.9); Lymphocytes % 32.3 % (15.3-44.8); MCH 30.9 pg (27.0-35.0); MCHC 33.6 g/dL (32.0-36.0); MCV 91.9 fL (80-100); MPV 10.5 fL (7.6-11.3); Monocytes % 11.8 % (3.3-12.3); Neutrophils % 54.9 % (41.7-73.7); Platelets 82 thou/uL (152-406); RBC Red Blood Cell Count 4.18 M/uL (4.33-5.43); Red Cell Distribution Width 14.2 % (12.1-15.2)
[2024-07-01 06:04] LABS: Albumin 2.9 g/dL (3.4-5.0); Albumin/Globulin Ratio 0.8 (1.1-1.8); Anion Gap 4.4 mEq/L (5.0-15.0); Bilirubin Total 0.4 mg/dL (0.2-1.0); Globulin 3.5 g/dL (2.3-3.5); Potassium 3.4 mEq/L (3.5-5.1); Protein, Total 6.4 g/dL (6.4-8.2)
[2024-07-01] MEDS: POTASSIUM CL SA 10 MEQ TAB PO ONE (09:21)
[2024-07-01 10:59] VITALS: O2SAT 97
[2024-07-01 11:55] LABS: Blood Morphology Comment NOT SEEN (NOT SEEN); Platelet Estimate DECR; White Blood Cell Scan OK (OK)
--- NOTE | 2024-07-01 13:13 | P.PN ---
Subjective Date of Service: 07/01/24 Chief Complaint: Failed outpatient treatment, panniculitis with abscess Subjective: Improving (plt count up but now so are LFTs, will decrease steroids and recheck in am) <Betty Lundberglen - Last Filed: 07/01/24 13:15> Date of Service: 07/01/24 <Mell Espinal - Last Filed: 07/01/24 13:18> Review of Systems 10-point ROS is otherwise unremarkable Integumentary: As per HPI <Gisele Lundbergruben Lowry - Last Filed: 07/01/24 13:15> Physical Examination - Vital Signs Temperature: 97.6 F Blood Pressure: 143/68 Pulse: 59 Respirations: 20 Pulse Ox (%): 95 - Physical Exam General: Alert, In no apparent distress, Oriented x3, Obese HEENT: Atraumatic, Normocephalic Neck: Supple Respiratory: Normal air movement Cardiovascular: Normal pulses, Regular rate/rhythm Capillary refill: <2 Seconds Gastrointestinal: Soft and benign Musculoskeletal: No clubbing, No swelling Integumentary: Other (cellulitis resolved, abscess I&D site clean and dry) Neurological: Normal speech, Normal affect Lymphatics: No axilla or inguinal lymphadenopathy External genitalia: Deferred Rectal: Deferred - Studies Medications List Reviewed: Yes <Gisele Lundbergy Alen - Last Filed: 07/01/24 13:15> Assessment And Plan - Plan Assessment & Plan - Problems (Diagnosis) (1) Persistent fever Current Visit: Yes Status: Acute (2) Possible hepatic lesion Current Visit: Yes Status: Acute (3) Liver enzyme elevation Current Visit: Yes Status: Acute (4) Abdominal wall cellulitis Current Visit: Yes Status: Acute (5) Thrombocytopenia Current Visit: Yes Status: Acute - Plan 1. Continue with IV antibiotic (rocephin and flagyl); CT Chest/Abd/pelvis with no signs of infection 2. Continue with local wound care - resolving 3. Surgical consultation appreciated - s/p I&D 4. Gentle IV hydration - stopped 5. Monitor CBC/procalcitonin/blood cx 6. Echo negative 7. Antipyretic (Tmax 7/30 99.9) - no fever 8. Inflammatory markers pending; US for DVT (4 ext US negative for DVT) 9. Monitor plts; HIT Ab pending; peripheral blood smear; Appreciate hematology input; repeat plt ct, plt count lower today (26). Started steroids this am. Will recheck plt at 1300. TS O+, plt count impoved to 82 on 07/01/24 but now LFTs have also increased to AST 199 and ALT 135. Steroid dose decreased. Will reassess labs in am and likely discharge home to f/u hematology 10. GI and DVT prophylaxis Discharge Plan: Home Plan to discharge in: Greater than 2 days Discharge Plan: Home Plan to discharge in: 24 Hours <Betty Lundberg - Last Filed: 07/01/24 13:15> - Plan Pt seen and examined. I agree with the note by the TOLL TEST DESK WORKER. Continue rocephin and flagyl for abdominal wall cellulitis. Continue steroid for thrombocytopenia. Platelet improved from 26 -> 42 -> 82. Will reduced solumedrol to 40mg due to transamnitis. Will trend LFT. Pt has history of primary biliary cirrhosis. No active bleeding. Hematology is following. Will give prn ativan for anxiety. <Mell Espinal - Last Filed: 07/01/24 13:18>
[2024-07-02] MEDS: METHYLPREDNISOLONE 40 MG INJ IV SCH (05:30)
[2024-07-02 07:05] LABS: Absolute Lymphocytes (CBC) 1.4 K/uL (0.7-4.9); Absolute Monocytes 0.8 K/uL (0.1-1.3); Absolute Neutrophil 4.9 K/uL (1.8-8.0); Basophils % 0.3 % (0-1.3); Eosinophils % 0.4 % (0-4.4); Hematocrit 40.8 % (39.6-49.0); Hemoglobin 13.8 g/dL (13.6-17.9); Lymphocytes % 19.5 % (15.3-44.8); MCHC 33.8 g/dL (32.0-36.0); MCV 91.9 fL (80-100); MPV 9.8 fL (7.6-11.3); Monocytes % 11.5 % (3.3-12.3); Neutrophils % 68.3 % (41.7-73.7); Platelets 146 thou/uL (152-406); RBC Red Blood Cell Count 4.45 M/uL (4.33-5.43); Red Cell Distribution Width 14.1 % (12.1-15.2)
[2024-07-02 07:20] LABS: Albumin 3.1 g/dL (3.4-5.0); Albumin/Globulin Ratio 0.8 (1.1-1.8); Anion Gap 7.3 mEq/L (5.0-15.0); Bilirubin Total 0.5 mg/dL (0.2-1.0); Globulin 3.8 g/dL (2.3-3.5); Potassium 3.3 mEq/L (3.5-5.1); Protein, Total 6.9 g/dL (6.4-8.2)
--- NOTE | 2024-07-02 08:46 | P.DS ---
Admission Date: 06/27/24 Discharge Date: 07/02/24 Reason for Admission: Failed outpatient treatment, panniculitis with abscess Consultations: Dr. Gomes Procedures: None Brief History of Present Illness: 43 yrs old Male with past medical history of primary biliary cirrhosis, who came to ER with complaints of Fever and Abscess abdominal wall which has been going on for the last 2 weeks and has been getting better but fever continues to be high. For the last 4 days he was spiking fever up to 102. Denies any dysuria. No chest pain or shortness of breath. No upper respiratory tract symptoms. No sick contacts. Patient states that he was started having abdominal wall infection 2 weeks ago and has been progressively getting worse. He had 2 rounds of p.o. antibiotics. States that the skin looks better but continues to spike fevers. Hospital Course: Mr. Srivastava was admitted for failed outpatient therapy for cellulitis to the lower pannus with abscess just left of center. He was evaluated by Dr. Gomes but the area opened without surgical intervention. The wound and skin infection continued to improve but Mr. Srivastava continued to run low-grade fever and it was noted that his platelets were trending down: jermaine of 26. He has a 20yr history of Primary Biliary Cirrhosis so autoimmune studies were obtained and Solu-Medrol 60mg every 6 hours was initiated. His platelet count responded well, fever resolved, but his LFTs also trended up. Solu-Medrol was decreased to 40 mg every day. Platelet count up to 146, ALT 228, AST 258, ALK phos 162. He is stable for discharge and we will request that he follow-up with Dr. Gomez. Discharge diagnosis: Cellulitis with abscessresolving Probable autoimmune feverpast medical history of primary biliary cirrhosis Discharge medications: Medrol Dosepak; take as directed #1 Ativan 1 mg; 1 p.o. every 8 as needed panic/anxiety #12 Flagyl 500 mg 1 p.o. every 8 hours x 5 days #15 Cefdinir 300 mg p.o. twice daily x 7 days #14 Follow-up: [facility] and hematology (Dr. Gomez) Continue home medicines as previously prescribed GOAL: Clear understanding of disease process Diet: ADA, low sodium Activity: Fall precautions INSTRUCTIONS: Physician Discharge Instructions: Okay to DC IV and DC home Follow-up with primary care provider in 1 to 2 weeks Follow-up with cardiology in 1 to 2-week Please call the inpatient unit for any questions or concerns regarding hospital stay Return to the ER for worsening symptoms <Betty Lundberg Alen - Last Filed: 07/02/24 08:57> Admission Date: 06/27/24 Discharge Date: 07/02/24 Hospital Course: Pt melchor nd examined. I agree withthe note by the SALES TRAINEE. Pt is feeling better. Platelet count is 146. We stopped steroid and advised pt to follow up with his PCP within 1 week to monitor LFTs. Ok to discharge pt. Take the antibiotics as prescribed. <Mell Espinal - Last Filed: 07/02/24 10:22> Disposition: ROUTINE DISCHARGE Discharge Condition: GOOD Vital Signs/Physical Exam: Temp Pulse Resp BP Pulse Ox 97.0 F 71 16 145/85 H 100 07/02/24 04:00 07/02/24 04:00 07/02/24 04:00 07/02/24 04:00 07/02/24 04:00 General: Alert, In no apparent distress, Oriented x3 HEENT: Atraumatic, Normocephalic Neck: Supple Respiratory: Clear to auscultation bilaterally, Normal air movement Cardiovascular: No edema, Normal pulses, Regular rate/rhythm, Systolic murmur (faint) Capillary refill: <2 Seconds Gastrointestinal: Soft and benign Musculoskeletal: No clubbing Integumentary: Other (lower left pannus with mild discoloration (darkening), healing wound, no discharge/erythema) Neurological: Normal speech, Normal tone, Normal affect Lymphatics: No axilla or inguinal lymphadenopathy External genitalia: Deferred Rectal: Deferred Laboratory Data at Discharge: WBC 7.20 thou/uL (4.3-10.9) 07/02/24 06:55 Hgb 13.8 g/dL (13.6-17.9) 07/02/24 06:55 Hct 40.8 % (39.6-49.0) 07/02/24 06:55 Plt Count 146 thou/uL (152-406) L D 07/02/24 06:55 PT 13.5 SECONDS (9.4-12.5) H 06/29/24 05:44 INR 1.21 06/29/24 05:44 APTT 36.5 SECONDS (24.3-36.9) 06/29/24 05:44 Sodium 140 mEq/L (136-145) 07/02/24 06:55 Potassium 3.3 mEq/L (3.5-5.1) L 07/02/24 06:55 BUN 7 mg/dL (7-18) 07/02/24 06:55 Creatinine 0.65 mg/dL (0.70-1.30) L 07/02/24 06:55 Glucose 116 mg/dL (74-106) H 07/02/24 06:55 Total Bilirubin 0.5 mg/dL (0.2-1.0) 07/02/24 06:55 AST 258 U/L (15-37) H 07/02/24 06:55 ALT 228 U/L (16-61) H 07/02/24 06:55 Alkaline Phosphatase 162 U/L (45-117) H 07/02/24 06:55 Triglycerides 186 mg/dL (<150) H 06/28/24 05:22 Cholesterol 97 mg/dL (<200) 06/28/24 05:22 HDL Cholesterol 12 mg/dL (40-60) L 06/28/24 05:22 Cholesterol/HDL Ratio 8.08 06/28/24 05:22 <Lundberg,Betty Alen - Last Filed: 07/02/24 08:57> Vital Signs/Physical Exam: Temp Pulse Resp BP Pulse Ox 97.8 F 66 18 144/74 H 96 07/02/24 08:00 07/02/24 08:00 07/02/24 08:00 07/02/24 08:00 07/02/24 08:00 Laboratory Data at Discharge: WBC 7.20 thou/uL (4.3-10.9) 07/02/24 06:55 Hgb 13.8 g/dL (13.6-17.9) 07/02/24 06:55 Hct 40.8 % (39.6-49.0) 07/02/24 06:55 Plt Count 146 thou/uL (152-406) L D 07/02/24 06:55 PT 13.5 SECONDS (9.4-12.5) H 06/29/24 05:44 INR 1.21 06/29/24 05:44 APTT 36.5 SECONDS (24.3-36.9) 06/29/24 05:44 Sodium 140 mEq/L (136-145) 07/02/24 06:55 Potassium 3.3 mEq/L (3.5-5.1) L 07/02/24 06:55 BUN 7 mg/dL (7-18) 07/02/24 06:55 Creatinine 0.65 mg/dL (0.70-1.30) L 07/02/24 06:55 Glucose 116 mg/dL (74-106) H 07/02/24 06:55 Total Bilirubin 0.5 mg/dL (0.2-1.0) 07/02/24 06:55 AST 258 U/L (15-37) H 07/02/24 06:55 ALT 228 U/L (16-61) H 07/02/24 06:55 Alkaline Phosphatase 162 U/L (45-117) H 07/02/24 06:55 Triglycerides 186 mg/dL (<150) H 06/28/24 05:22 Cholesterol 97 mg/dL (<200) 06/28/24 05:22 HDL Cholesterol 12 mg/dL (40-60) L 06/28/24 05:22 Cholesterol/HDL Ratio 8.08 06/28/24 05:22 <Mell Espinal - Last Filed: 07/02/24 10:22> <Betty Lundberg - Last Filed: 07/02/24 08:57> <Mell Espinal - Last Filed: 07/02/24 10:22> Home Medications: Cefdinir [Cefdinir*] 300 mg PO BID #14 cap 07/02/24 LORazepam [Ativan] 1 mg PO TID PRN #12 tab 07/02/24 Methylprednisolone [Medrol dosepack] 4 mg PO DIRECTED #1 gabriel 07/02/24 Mupirocin Oint [Bactroban 2% Ointment*] 1 appl TOP DAILY #1 tube 07/02/24 metroNIDAZOLE [Flagyl] 500 mg PO Q8H #15 07/02/24 New Medications: LORazepam [Ativan] 1 mg PO TID PRN #12 tab PRN Reason: Anxiety Mupirocin Oint [Bactroban 2% Ointment*] 1 appl TOP DAILY #1 tube Cefdinir [Cefdinir*] 300 mg PO BID #14 cap metroNIDAZOLE [Flagyl] 500 mg PO Q8H #15 Methylprednisolone [Medrol dosepack] 4 mg PO DIRECTED #1 gabriel Physician Discharge Instructions: 43 yrs old Male with past medical history of primary biliary cirrhosis, who came to ER with complaints of Fever and Abscess abdominal wall which has been going on for the last 2 weeks and has been getting better but fever continues to be high. For the last 4 days he was spiking fever up to 102. Denies any dysuria. No chest pain or shortness of breath. No upper respiratory tract symptoms. No sick contacts. Patient states that he was started having abdominal wall infection 2 weeks ago and has been progressively getting worse. He had 2 rounds of p.o. antibiotics. States that the skin looks better but continues to spike fevers. Cellulitis/area of cutaneous abscess evaluated by Dr. Gomes. The area was allowed to open spontaneously without surgical intervention. Mr. Srivastava has been on Flagyl and Rocephin IV and the cellulitis is vastly improving. However his admission is complicated by continued fever with spikes up to 102. It was noted his platelet count dropped to 26; therefore, additional autoimmune lab studies were performed and he was started on IV steroids. Platelets came up nicely however we will keep him an additional day to reassess lab work because his liver enzymes also elevated pretty significantly. The IV steroid dose was reduced and we will recheck his labs 07/02/24. Mr. Srivastava was admitted for failed outpatient therapy for cellulitis to the lower pannus with abscess just left of center. He was evaluated by Dr. Gomes but the area opened without surgical intervention. The wound and skin infection continued to improve but Mr. Srivastava continued to run low-grade fever and it was noted that his platelets were trending down: jermaine of 26. He has a 20yr history of Primary Biliary Cirrhosis so autoimmune studies were obtained and Solu-Medrol 60mg every 6 hours was initiated. His platelet count responded well, fever resolved, but his LFTs also trended up. Solu-Medrol was decreased to 40 mg every 6 hours. Platelet count up to 146, ALT 228, AST 258, ALK phos 162. He is stable for discharge and we will request that he follow-up with Dr. Gomez. Discharge diagnosis: Cellulitis with abscessresolving Probable autoimmune feverpast medical history of primary biliary cirrhosis Discharge medications: Medrol Dosepak; take as directed #1 Ativan 1 mg; 1 p.o. every 8 as needed panic/anxiety #12 Flagyl 500 mg 1 p.o. every 8 hours x 5 days #15 Cefdinir 300 mg p.o. twice daily x 7 days #14 Mupirocin BID as directed Follow-up: [facility] and hematology (Dr. Gomez) Continue home medicines as previously prescribed GOAL: Clear understanding of disease process Diet: ADA, low sodium Activity: Fall precautions INSTRUCTIONS: Physician Discharge Instructions: Okay to DC IV and DC home Follow-up with primary care provider in 1 to 2 weeks Follow-up with cardiology in 1 to 2-week Please call the inpatient unit for any questions or concerns regarding hospital stay Return to the ER for worsening symptoms Followup: NONE,NONE [Primary Care Provider] -
[2024-07-02] MEDS: POTASSIUM CL SA 10 MEQ TAB PO ONE (09:01)
[2024-07-02 09:03] VITALS: TEMP 97.8
[2024-07-02 12:39] VITALS: BP 138/87
[2024-07-04 07:45] LABS: Cyclic Citrullinated Peptide <16 Units (<20)
[2024-07-07 13:42] LABS: Anti-Nuclear Antibody Screen Negative (Negative)
== END 2024-07-02 13:15 | disposition home or self-care (01) | DRG 603 ==
LOC: ER 19:20 → ERHOLD 06-27 01:05 → 2ND 06-27 02:22
PROVIDERS: ADMIT Family Medicine; ATTEND Hospitalist
DX: L03.311 Cellulitis of abdominal wall (principal); E87.1 Hypo-osmolality and hyponatremia; N17.9 Acute kidney failure, unspecified; R78.81 Bacteremia; Z68.41 Body mass index [BMI] 40.0-44.9, adult; E66.9 Obesity, unspecified; E78.5 Hyperlipidemia, unspecified; K76.9 Liver disease, unspecified; M79.3 Panniculitis, unspecified; F41.9 Anxiety disorder, unspecified; L02.211 Cutaneous abscess of abdominal wall; D69.6 Thrombocytopenia, unspecified; K74.3 Primary biliary cirrhosis; R74.01 Elevation of levels of liver transaminase levels; R79.89 Other specified abnormal findings of blood chemistry; Z11.52 Encounter for screening for COVID-19; Z90.49 Acquired absence of other specified parts of digestive tract; Z28.310 Unvaccinated for COVID-19; Z79.899 Other long term (current) drug therapy
CPT/HCPCS: 36415; 71045; 71260; 74176; 74177; 76705; 80053; 80061; 80074; 81001; 82533; 83036; 83605; 84145; 84439; 84443; 85025; 85610; 85730; 86022; 86038; 86140; 86200; 86225; 86430; 86850; 86900; 86901; 87040; 87070; 87205; 87804; 87811; 93005; 93306; 93970; 96374; 99285; J0696; J1650; J2919; J7030; J7050; Q9967

== ENCOUNTER 2025-03-02 23:30 | Emergency (ER) | payer SELFPAY ==
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
[2025-03-03] MEDS ORDERED: OCTREOTIDE ACETATE 100 MCG/ML ONE (00:02)
[2025-03-03] MEDS ORDERED: PANTOPRAZOLE 40 MG INJ ONE (00:02)
[2025-03-03] MEDS ORDERED: CEFTRIAXONE 2000 MG/VIAL ONE (00:02)
[2025-03-03] MEDS ORDERED: ONDANSETRON 4 MG/2 ML VIAL ONE (00:02)
[2025-03-03] MEDS ORDERED: NA CHLORIDE 0.9% 2,000 ML ONE (00:03)
[2025-03-03 00:26] LABS: Absolute Basophils 0.1 K/uL (0-0.5); Absolute Eosinophils 0.2 K/uL (0-0.5); Absolute Monocytes 0.5 K/uL (0.1-1.3); Absolute Neutrophil 4.2 K/uL (1.8-8.0); Basophils % 1.7 % (0-1.3); Eosinophils % 2.5 % (0-4.4); Hematocrit 46.3 % (39.6-49.0); Hemoglobin 15.7 g/dL (13.6-17.9); Lymphocytes % 28.4 % (15.3-44.8); MCH 29.8 pg (27.0-35.0); MCHC 33.8 g/dL (32.0-36.0); MCV 88.2 fL (80-100); MPV 7.3 fL (7.6-11.3); Monocytes % 6.7 % (3.3-12.3); Neutrophils % 60.7 % (41.7-73.7); Nucleated Red Blood Cells % 0.1 % (0-0); Platelets 180 thou/uL (152-406); RBC Red Blood Cell Count 5.25 M/uL (4.33-5.43); Red Cell Distribution Width 14.1 % (12.1-15.2)
[2025-03-03 00:29] LABS: PT Prothrombin Time 12.8 SECONDS (10-13.0); PTT, Activated Partial Thromb 29.9 SECONDS (27.2-37.4); Protime INR 1.13
[2025-03-03 00:34] LABS: Anion Gap 12.4 mEq/L (5.0-15.0); Bilirubin Total 2.4 mg/dL (0.2-1.0); Potassium 3.4 mEq/L (3.5-5.1)
--- NOTE | 2025-03-03 02:34 | RAD REPORT ---
EXAM: CT Angiography Abdomen and Pelvis With Intravenous Contrast CLINICAL HISTORY: VOMITING BLOOD TECHNIQUE: Axial computed tomographic angiography images of the abdomen and pelvis with intravenous contrast. Sagittal and coronal reformatted images were created and reviewed. This CT exam was performed using one or more of the following dose reduction techniques: automated exposure control, adjustmen t of the mA and/or kV according to patient size, and/or use of iterative reconstruction technique. MIP reconstructed images were created and reviewed. COMPARISON: CT abdomen pelvis dated 06/28/2024 FINDINGS: VASCULATURE: Aorta: No acute findings. No abdominal aortic aneurysm. No dissection. Celiac trunk and mesenteric arteries: No acute findings. No occlusion or significant stenosis. Renal arteries: No acute findings. No occlusion or significant stenosis. Iliac arteries: No acute findings. No occlusion or significant stenosis. Lung bases: Unremarkable. No mass. No consolidation. ABDOMEN: Liver: The liver is diffusely low in density compatible with steatosis. Gallbladder and bile ducts: Unremarkable. No calcified stones. No ductal dilation. Pancreas: Unremarkable. No ductal dilation. No mass. Spleen: Unremarkable. No splenomegaly. Adrenals: Unremarkable. No mass. Kidneys and ureters: Unremarkable. Normal renal cortical enhancement. No calculi. No hydronephros is. Stomach and bowel: Intramural fat throughout the large bowel which can be seen in the setting of pr ior inflammation. The large bowel is decompressed limiting evaluation of the wall. No obstruction. No areas of active GI bleeding identified. PELVIS: Appendix: There has been an appendectomy. Bladder: Unremarkable. No mass. Reproductive: Unremarkable as visualized. ABDOMEN and PELVIS: Intraperitoneal space: Unremarkable. No significant fluid collection. No free air. Bones/joints: Mild multilevel spondylosis. No acute fracture. No dislocation. Soft tissues: Tiny fat-containing umbilical hernia. Lymph nodes: Unremarkable. No enlarged lymph nodes. IMPRESSION: 1. No areas of active GI bleeding identified. 2. Other findings as above. Electronically signed by: Jourdan Nelson MD 03/03/2025 02:15 AM CDT Due to temporary technical issues with the PACS/Tracky reporting system, reports are being dilcia d by the in-house radiologist without review as a courtesy to ensure prompt reporting the interpreting radiologist is fully responsible for the content of the report. Transcribed Date/Time: 03/03/2025 2:33 AM
--- NOTE | 2025-03-03 03:24 | EDPHYS ---
Physician Documentation [facility] Name: Serjio Srivastava Age: 44 yrs Sex: Male : 1980 Arrival Date: 03/02/2025 Time: 23:30 Bed 7 Private MD: ED Physician Balwinder Kincaid HPI: 03/03 03:39 This 44 yrs old Male presents to ER via Ambulatory with complaints of Vomiting rt - blood, General Weakness, Numbness Of Arm, Shortness Of Breath. 03:39 Patient presents to the ED with hematemesis starting tonight. Patient was reportedly rt weak, fatigued starting this morning. Denies melena, rectal bleeding. Denies other acute complaints at this time. Symptoms are moderate severity, no other aggravating or alleviating factors. Patient does have history of alcohol abuse.. Historical: - Allergies: 03/02 23:40 No Known Allergies; vc1 - Home Meds: 23:40 None [Active]; vc1 - PMHx: 23:40 PRIMARY BILIARY CIRRHOSIS; vc1 - PSHx: 23:40 Appendectomy; vc1 - Infectious Disease History:: Denies. - Social history:: Patient uses alcohol, on a daily basis. 12 pack per day. - Family history:: not pertinent. ROS: 03/03 03:39 Abdomen/GI: Positive for rt 03:42 Constitutional: Negative for fever, chills, and weight loss, Cardiovascular: Negative rt for chest pain, palpitations, and edema, Respiratory: Negative for shortness of breath, cough, wheezing, and pleuritic chest pain, 03:42 Abdomen/GI: Positive for nausea, hematemesis, 03:45 MS/Extremity: Negative for injury and deformity, Skin: Negative for injury, rash, and rt discoloration, Neuro: Negative for headache, weakness, numbness, tingling, and seizure, Exam: 03:45 Constitutional: This is a well developed, well nourished patient who is awake, alert, rt and in no acute distress. Head/Face: Normocephalic, atraumatic. Chest/axilla: Normal chest wall appearance and motion. Nontender with no deformity. No lesions are appreciated. Cardiovascular: Regular rate and rhythm with a normal S1 and S2. No gallops, murmurs, or rubs. Normal PMI, no JVD. No pulse deficits. Respiratory: Lungs have equal breath sounds bilaterally, clear to auscultation and percussion. No rales, rhonchi or wheezes noted. No increased work of breathing, no retractions or nasal flaring. Skin: Warm, dry with normal turgor. Normal color with no rashes, no lesions, and no evidence of cellulitis. MS/ Extremity: Pulses equal, no cyanosis. Neurovascular intact. Full, normal range of motion. Neuro: Awake and alert, GCS 15, oriented to person, place, time, and situation. Cranial nerves II-XII grossly intact. Motor strength 5/5 in all extremities. Sensory grossly intact. Cerebellar exam normal. Normal gait. 03:45 Abdomen/GI: Mild tenderness diffusely without rebound, guarding, distention, Vital Signs: 03/02 23:38 BP 149 / 92; Pulse 106; Resp 18; Temp 98.3; Pulse Ox 98% ; Weight 120.2 kg; Height 5 vc1 ft. 7 in. ; Pain 0/10; 03/03 01:37 BP 123 / 71; Pulse 83; Resp 16; Pulse Ox 99% ; jb4 02:27 BP 119 / 75; Pulse 85; Resp 16; Pulse Ox 99% on R/A; jb4 03/02 23:38 Body Mass Index 41.50 (120.20 kg, 170.18 cm) vc1 03/02 23:38 Pain Scale: Adult vc1 MDM: 03/02 23:42 Medical Screening Exam initiated rt 03/03 03:46 Differential diagnosis: Variceal bleed, gastritis, ulcer. Data reviewed: vital signs, rt nurses notes, lab test result(s), radiologic studies. Consideration of Admission/Observation Escalation of care including admission/observation considered. Patient requires transfer for higher level of care. Management of patient was discussed with the following: Hospitalist: Discussed with accepting physician at [facility], accepts patient in transfer. I considered the following discharge prescriptions or medication management in the emergency department Medications were administered in the Emergency Department. See MAR. Independent interpretation of the following test(s) in the Emergency Department CT Scan: My interpretation is No bowel obstruction seen on my interpretation of CT scan images. Care significantly affected by the following Social Determinants of Health: Misuse of alcohol and/or drugs. Counseling: I had a detailed discussion with the patient and/or guardian regarding the historical points, exam findings, and any diagnostic results supporting the discharge/admit diagnosis, lab results, radiology results, the need to transfer to another facility. Response to treatment: the patient's symptoms have markedly improved after treatment. ED course: [facility] facilities at [facility] are reportedly at capacity and putting patients on waitlist, due to nature of GI bleed, believe that waiting on transfer here with no GI coverage would put the patient at risk, therefore, will send patient [facility] where there are beds available.. 03/02 23:45 Order name: CBC with Diff; Complete Time: 01:00 rt 03/02 23:45 Order name: CMP; Complete Time: 01:00 rt 03/02 23:45 Order name: Lipase; Complete Time: 01:00 rt 03/02 23:45 Order name: Type And Screen; Complete Time: 01:20 rt 03/02 23:45 Order name: PT-INR; Complete Time: 01:00 rt 03/02 23:45 Order name: Ptt, Activated; Complete Time: 01:00 rt 03/02 23:45 Order name: CT Abdomen - Angio rt 03/02 23:51 Order name: Pelvis Angio EDMS 03/02 23:45 Order name: IV Saline Lock; Complete Time: 00:12 rt 03/02 23:45 Order name: Labs collected and sent; Complete Time: 00:12 rt Administered Medications: 00:20 Drug: Pantoprazole IVP 80 mg IVP once Route: IVP; Site: right antecubital; jb4 03:08 Follow up: Response: No adverse reaction; Marked relief of symptoms jb4 00:21 Drug: Ondansetron IVP 4 mg IVP once; over 2 minutes Route: IVP; Site: right antecubital;jb4 01:00 Follow up: Response: No adverse reaction; Marked relief of symptoms jb4 00:21 Drug: Octreotide IV 50 mcg IV at calculated rate once Route: IV; Rate: calculated rate; jb4 Site: right antecubital; 03:07 Follow up: Response: No adverse reaction jb4 00:21 Drug: NS 0.9% IV 1000 ml IV at 1 bolus Per protocol; to be given as a bolus over 60 jb4 minutes Route: IV; Rate: 1 bolus; Site: right antecubital; 00:25 Drug: NS 0.9% IV 1000 ml IV at 1 bolus Per protocol; to be given as a bolus over 60 jb4 minutes Route: IV; Rate: 1 bolus; Site: right antecubital; 03:59 Follow up: IV Status: Completed infusion; IV Intake: 1000ml lg3 00:26 Drug: Rocephin IV 2 grams IV at calculated rate once; Given slow IV push per pharmarcy jb4 instructions {Note: administered by DYAN Arreguin.} Route: IV; Rate: calculated rate; Site: right antecubital; 00:35 Follow up: Response: No adverse reaction; IV Status: Completed infusion; IV Intake: [id number] Disposition Summary: 03/03/25 03:23 Transfer Ordered Notes: Transfer Location: [facility] rt Reason: Higher level of care rt Condition: Fair rt Problem: new rt Symptoms: have improved rt Accepting Physician: (03/03/25 04:45) kd3 Diagnosis - Hematemesis rt Forms: - Medication Reconciliation Form rt - SBAR form rt Signatures: Dispatcher [employer] EDJerry Joyce RN RN jb4 Kallie Hernandez RN RN kd3 Nitza Weaver RN RN vc1 Balwinder Kincaid MD MD rt Able, Lacie RN lg3 Corrections: (The following items were deleted from the chart) 03/02 23:45 23:45 Abdomen Angio+CT.RAD.BRZ ordered. EDIA EDMS 03/03 04:45 03:23 rt kd3
--- NOTE | 2025-03-03 03:24 | ER ---
Nurse's Notes [facility] Name: Serjio Srivastava Age: 44 yrs Sex: Male : 1980 Arrival Date: 03/02/2025 Time: 23:30 Bed 7 Private MD: Diagnosis: Hematemesis Presentation: 03/02 23:38 Chief complaint: Patient states: came home from work feeling weak, lightheaded, cold vc1 sweats, short of breath, vomiting with blood in vomit. Coronavirus screen: Client denies travel out of the [place] in the last 14 days. chills, nausea, shortness of breath, vomiting. Client presents with at least one sign or symptom that may indicate coronavirus-19. Ebola Screen: Patient negative for fever greater than or equal to 101.5 degrees Fahrenheit, and additional compatible Ebola Virus Disease symptoms Patient denies exposure to infectious person. Patient denies travel to an Ebola-affected area in the 21 days before illness onset. No symptoms or risks identified at this time. Initial Sepsis Screen: Does the patient meet any 2 criteria? No. Patient's initial sepsis screen is negative. Does the patient have a suspected source of infection? No. Patient's initial sepsis screen is negative. Risk Assessment: Do you want to hurt yourself or someone else? Patient reports no desire to harm self or others. Onset of symptoms was March 02, 2025. Care prior to arrival: None. Activity prior to arrival: vomiting. Mechanism of Injury: No Mechanism of Injury. 23:38 Method Of Arrival: Ambulatory vc1 23:38 Acuity: MARIBEL 3 vc1 Triage Assessment: 23:42 General: Appears in no apparent distress. uncomfortable, Behavior is calm, cooperative, vc1 appropriate for age. Pain: Denies pain. EENT: No deficits noted. No signs and/or symptoms were reported regarding the EENT system. Neuro: Level of Consciousness is awake, alert, obeys commands, Oriented to person, place, time, situation, Appropriate for age. Cardiovascular: Capillary refill < 3 seconds Patient's skin is warm and dry. Respiratory: Reports shortness of breath at rest Airway is patent Respiratory effort is even, unlabored, Respiratory pattern is regular, symmetrical. GI: Reports vomiting, vomiting bright red blood. : No deficits noted. No signs and/or symptoms were reported regarding the genitourinary system. Derm: Skin is intact, is healthy with good turgor, Skin is dry, Skin is normal, Skin temperature is warm. Musculoskeletal: Circulation, motion, and sensation intact. Range of motion: intact in all extremities. Historical: - Allergies: 23:40 No Known Allergies; vc1 - Home Meds: 23:40 None [Active]; vc1 - PMHx: 23:40 PRIMARY BILIARY CIRRHOSIS; vc1 - PSHx: 23:40 Appendectomy; vc1 - Infectious Disease History:: Denies. - Social history:: Patient uses alcohol, on a daily basis. 12 pack per day. - Family history:: not pertinent. Screenin:41 [facility] ED Fall Risk Assessment (Adult) History of falling in the last 3 months, vc1 including since admission No falls in past 3 months (0 pts) Confusion or Disorientation No (0 pts) Intoxicated or Sedated No (0 pts) Impaired Gait No (0 pts) Mobility Assist Device Used No (0 pt) Altered Elimination No (0 pt) Score/Fall Risk Level 0 - 2 = Low Risk Oriented to surroundings, Maintained a safe environment, Educated pt \T\ family on fall prevention, incl call for assistance when getting out of bed, Hourly rounding (assess needs \T\ fall precautionary measures) done. Abuse screen: Denies threats or abuse. Nutritional screening: No deficits noted. Tuberculosis screening: No symptoms or risk factors identified. Assessment: 03/03 01:37 Reassessment: Patient appears in no apparent distress at this time. Patient and/or jb4 family updated on plan of care and expected duration. Pain level reassessed. Patient is alert, oriented x 3, equal unlabored respirations, skin warm/dry/pink. Patient states feeling better. Patient states symptoms have improved. 02:27 Reassessment: Patient appears in no apparent distress at this time. Patient and/or jb4 family updated on plan of care and expected duration. Pain level reassessed. Patient is alert, oriented x 3, equal unlabored respirations, skin warm/dry/pink. Vital Signs: 03/02 23:38 BP 149 / 92; Pulse 106; Resp 18; Temp 98.3; Pulse Ox 98% ; Weight 120.2 kg; Height 5 vc1 ft. 7 in. ; Pain 0/10; 03/03 01:37 BP 123 / 71; Pulse 83; Resp 16; Pulse Ox 99% ; jb4 02:27 BP 119 / 75; Pulse 85; Resp 16; Pulse Ox 99% on R/A; jb4 03/02 23:38 Body Mass Index 41.50 (120.20 kg, 170.18 cm) vc1 03/02 23:38 Pain Scale: Adult vc1 ED Course: 03/02 23:32 Patient arrived in ED. im 23:35 Balwinder Kincaid MD is Attending Physician. rt 23:40 Triage completed. vc1 23:41 Arm band placed on right wrist. vc1 23:54 Kallie Hernandez, DYAN is Primary Nurse. kd3 03/03 00:00 Radiology exam delayed due to lab results not completed at this time. (HCG) jc4 (BUN/Creatinine) IV insertion attempt and/or patient not having appropriate IV at this time. 00:11 Inserted saline lock: 20 gauge in right antecubital area, using aseptic technique. mm11 Blood collected. Flushed with 10 mL NS. 00:11 Inserted saline lock: 20 gauge in left forearm, using aseptic technique. Blood mm11 collected. Flushed with 10 mL NS. 00:11 Ptt, Activated Sent. mm11 00:11 PT-INR Sent. mm11 00:11 Type And Screen Sent. mm11 00:12 CBC with Diff Sent. mm11 00:12 CMP Sent. mm11 00:12 Lipase Sent. mm11 01:29 CT Abdomen - Angio In Process Unspecified. EDMS 01:29 Pelvis Angio In Process Unspecified. EDMS 02:27 Patient has correct armband on for positive identification. Bed in low position. Call jb4 light in reach. Side rails up X 1. Provided Education on: plan of care. 02:27 No provider procedures requiring assistance completed. jb4 04:45 Patient transferred, IV remains in place. kd3 Administered Medications: 00:20 Drug: Pantoprazole IVP 80 mg IVP once Route: IVP; Site: right antecubital; jb4 03:08 Follow up: Response: No adverse reaction; Marked relief of symptoms jb4 00:21 Drug: Ondansetron IVP 4 mg IVP once; over 2 minutes Route: IVP; Site: right antecubital;jb4 01:00 Follow up: Response: No adverse reaction; Marked relief of symptoms jb4 00:21 Drug: Octreotide IV 50 mcg IV at calculated rate once Route: IV; Rate: calculated rate; jb4 Site: right antecubital; 03:07 Follow up: Response: No adverse reaction jb4 00:21 Drug: NS 0.9% IV 1000 ml IV at 1 bolus Per protocol; to be given as a bolus over 60 jb4 minutes Route: IV; Rate: 1 bolus; Site: right antecubital; 00:25 Drug: NS 0.9% IV 1000 ml IV at 1 bolus Per protocol; to be given as a bolus over 60 jb4 minutes Route: IV; Rate: 1 bolus; Site: right antecubital; 03:59 Follow up: IV Status: Completed infusion; IV Intake: 1000ml lg3 00:26 Drug: Rocephin IV 2 grams IV at calculated rate once; Given slow IV push per pharmarcy jb4 instructions {Note: administered by DYAN Arreguin.} Route: IV; Rate: calculated rate; Site: right antecubital; 00:35 Follow up: Response: No adverse reaction; IV Status: Completed infusion; IV Intake: [id number] Medication: 03/02 23:41 VIS not applicable for this client. vc1 Intake: 03/03 00:35 IV: 10ml; Total: 10ml. jb4 03:59 IV: 1000ml; Total: 1010ml. lg3 Outcome: 03:23 ER care complete, transfer ordered by . rt 04:45 Transferred by ground EMS to [facility], kd3 04:45 Condition: stable 04:45 Discharge instructions given to patient, Instructed on the need for transfer, Demonstrated understanding of instructions, follow-up care, 04:45 Patient left the ED. kd3 Signatures: Dispatcher [employer] EDMS Jerry Hansen RN RN jb4 Shelley Zayas RN RN lg3 Kallie Hernandez RN RN kd3 Nitza Weaver RN RN vc1 Balwinder Kincaid MD MD rt Ariana Haq Justin jc4 olivier trammell mm11
[2025-03-03 04:56] VITALS: TEMP 98.3
[2025-03-03 05:03] VITALS: O2SAT 99
[2025-03-03 05:16] VITALS: BP 119/75
== END 2025-03-03 04:45 | disposition short-term general hospital (02) ==
LOC: ER 23:30
DX: K92.0 Hematemesis (principal); R53.1 Weakness
CPT/HCPCS: 36415; 72191; 74175; 80053; 83690; 85025; 85610; 85730; 86850; 86900; 86901; 96361; 96374; 96375; 99285; J0696; J2354; J2405; J2470; J7030; Q9967